=== PATIENT | female | born 1950 | race Caucasian/White ===

== ENCOUNTER → 2022-11-11 | Outpatient (CLI) | payer MEDICARE ==
[2022-11-11 15:36] LABS: Basophils # (A) 0.03 X 10*3/uL (0.00-0.10); Basophils % (A) 0.5 %; Eosinophils # (A) 0.08 X 10*3/uL (0.04-0.35); Eosinophils % (A) 1.4 %; HCT 43.2 % (37.2-46.3); HGB 13.8 g/dL (12.0-15.0); Immature Grans, Automated 0.2 %; Lymphocytes # (A) 2.44 X 10*3/uL (0.90-5.00); Lymphocytes % (A) 43.3 %; MCH 31.5 pg (27.0-32.0); MCHC 31.9 g/dL (32.0-37.0); MCV 98.6 fL (80.0-97.0); Mean Platelet Volume 10.8 fL (9.5-12.2); Monocytes # (A) 0.47 X 10*3/uL (0.20-1.00); Monocytes % (A) 8.3 %; NRBC Per 100 WBC 0 /100 WBCS (0.0-0.0); Neutrophils # (A) 2.61 X 10*3/uL (1.80-7.70); Neutrophils % (A) 46.3 %; Platelet Count 307 X 10*3/uL (140-440); RBC 4.38 X 10*6/uL (4.10-5.20); RDW 13.9 % (11.5-14.5); T4, Free (Free Thyroxine) 0.98 ng/dL (0.800-1.800); WBC 5.64 X 10*3/uL (4.50-10.00)
== END | disposition home or self-care (01) ==
LOC: LABWHC1 08:37
PROVIDERS: ATTEND Dermatology
DX: L65.9 Nonscarring hair loss, unspecified (principal); L57.0 Actinic keratosis; L81.4 Other melanin hyperpigmentation; L82.1 Other seborrheic keratosis; D18.01 Hemangioma of skin and subcutaneous tissue
CPT/HCPCS: 36415; 84439; 84443; 85025

== ENCOUNTER → 2022-11-29 | Outpatient (CLI) | payer MEDICARE ==
--- NOTE | 2022-12-06 07:30 | MM ---
Reason for Exam: Screening (asymptomatic). Last mammogram was performed 1 year(s) and 1 month(s) ago. Patient History: Menarche at age 13. First Full-Term at age 17. Postmenopausal. Risk Values: Felicity 5 year model risk: 1.2%. NCI Lifetime model risk: 2.9%. Prior Study Comparison: 06/30/2017 Bilateral Screening Mammogram, [facility]. 11/13/2021 Bilateral Screening Mammogram, [facility]. Tissue Density: There are scattered fibroglandular densities. Findings: Analyzed By CAD. A few tiny benign-appearing round calcifications in the bilateral breasts are present. There are benign appearing small round circumscribed masses towards the right axilla favoring lymph nodes redemonstrated. There is no suspicious group of microcalcifications or new suspicious mass in either breast. Overall Assessment: Benign, BI-RAD 2 Management: Screening Mammogram of both breasts in 1 year. . Patient should continue monthly self-breast exams. A clinical breast exam by your physician is recommended on an annual basis. This exam should not preclude additional follow-up of suspicious palpable abnormalities. Note on Felicity scores and lifetime risk: 1. A Felicity score greater than 3% is considered moderate risk. If this is the case, consider specialist referral to assess eligibility for a risk reducing agent. 2. If overall lifetime risk for the development of breast cancer is 20% or higher, the patient may qualify for future screening with alternating mammogram and breast MRI. Electronically signed and approved by: Rogelio Dobbs M.D.
== END | disposition home or self-care (01) ==
LOC: RADMAMWWP 09:41
PROVIDERS: ATTEND Family Medicine
DX: Z12.31 Encounter for screening mammogram for malignant neoplasm of breast (principal); Z78.0 Asymptomatic menopausal state
CPT/HCPCS: 77063; 77067

== ENCOUNTER → 2023-03-19 | Outpatient (CLI) | payer MEDICARE | END | disposition home or self-care (01) | LOC: LABPAT 11:39 | PROVIDERS: ATTEND Orthopaedic Surgery | DX: Z01.812 Encounter for preprocedural laboratory examination (principal); M17.12 Unilateral primary osteoarthritis, left knee; Z22.322 Carrier or suspected carrier of Methicillin resistant Staphylococcus aureus | CPT/HCPCS: 87070 ==

== ENCOUNTER 2023-04-07 08:20 | Day surgery (SDC) | payer MEDICARE ==
--- NOTE | 2023-04-06 12:43 | HP ---
HISTORY AND PHYSICAL DATE OF SURGERY: 04/07/2023 HISTORY OF PRESENT ILLNESS: Valentine Cee is a 72-year-old patient seen with symptomatic left knee osteoarthritis. We discussed options for treatment. The patient elected to proceed with left total knee arthroplasty. Consent was obtained. Medical clearance was provided by Dr. Edy Purcell. PAST MEDICAL HISTORY: Asthma, gastroesophageal reflux disease. SURGICAL HISTORY: Knee arthroscopy, appendectomy, tonsillectomy. DAILY MEDICATIONS: 1. Motrin. 2. Multivitamin. 3. Omeprazole. ALLERGIES: None. SOCIAL HISTORY: She denies tobacco use. PHYSICAL EVALUATION OF LEFT KNEE: Range of motion is 0 to 100 degrees, mild effusion, tenderness along lateral joint line. Crepitus along left patellofemoral compartment with range of motion. Pain with patellofemoral compression. Ligaments are stable. Hip rotation without pain. Distal neurovascular exam is intact. IMAGING: Radiographs of the left knee reveal severe osteoarthritic changes. IMPRESSION: 1. Left knee osteoarthritis. 2. Gastroesophageal reflux disease. 3. Asthma. PLAN: Left total knee arthroplasty. MMODL / IJN: [id number] /
[~2023-04-07 08:20] MED LIST: ACETAMINOPHEN TAB 500 MG TAB PO PRN; HYDROmorphone 0.5 MG/0.5 ML SYRINGE IVP PRN; LIDOCAINE 1% (10MG/ML) FOR IV START INTRADERMA PRN; MELOXICAM 7.5 MG TAB PO PRN; ONDANSETRON 4 MG/2 ML VIAL IVP ONE; TRANEXAMIC 1,000 MG/100ML-NACL 1,000 MG in SALINE 1 100ML.BAG IVPB PRN
[2023-04-07] MEDS: LACTATED RINGERS 1,000 ML IV SCH ×2 (08:55→14:13)
[2023-04-07] MEDS ORDERED: MIDAZOLAM 2 MG/2 ML VIAL IVP ONE (09:38)
[2023-04-07] MEDS ORDERED: ONDANSETRON 4 MG/2 ML VIAL IVP PRN (11:39)
[2023-04-07] MEDS ORDERED: HYDROmorphone 0.5 MG/0.5 ML SYRINGE IVP PRN ×2 (11:39)
[2023-04-07] MEDS ORDERED: NALOXONE 0.4 MG/ML 1 ML VIAL IV PRN (11:39)
[2023-04-07] MEDS ORDERED: HYDROcodone/APAP 5-325MG 1 EACH TAB PO PRN (11:39)
--- NOTE | 2023-04-07 11:39 | P.OP ---
Date of Procedure: 04/07/23 Preoperative Diagnosis: Left knee osteoarthritis Postoperative Diagnosis: Left knee osteoarthritis Procedure(s) Performed: Left total knee arthroplasty Implants: 1. Depuy attune size 6 narrow left cruciate retaining cemented femur 2. Depuy attune size 6 fixed bearing cemented tibial baseplate 3. Depuy attune size 6 fixed bearing cruciate retaining 12 mm polyethylene tibial insert 4. Depuy attune 38 mm all polyethylene cemented patella Anesthesia: regional (Adductor canal catheter, Ipack block), spinal Surgeon: Singh Mak Pump And Blower Operator #1: Arturo Em Estimated Blood Loss (ml): 40 Pathology: none sent Condition: stable Disposition: PACU Indications for Procedure: 72-year-old patient seen with symptomatic left knee osteoarthritis. After having treatment options discussed, she elected to proceed with total knee arthroplasty. Operative Findings: see description of procedure Description of Procedure: Patient was taken to the operative suite after having an adductor canal catheter placed by the department of anesthesia. Patient underwent a spinal anesthetic by the department of anesthesia. Patient was given preoperative IV intake antibiotics and TXA. A well-padded tourniquet was placed about the left lower extremity. The lower extremity was then prepped and draped in the normal sterile orthopedic fashion. The extremity was elevated, a tourniquet was insufflated to 300. A standard anterior incision was made sharply through skin. Dissection was taken down through the subcutaneous soft tissues down to the extensor mechanism. A medial arthrotomy was performed, patella was everted and knee was flexed. There was advanced osteoarthritis noted. I introduced my distal intramedullary femoral drill. I then introduced the distal femoral cut ting jig. Marco Antonio HAIRSTON secured the cutting jig with 2 pins. I held retractors in position while Marco Antonio HAIRSTON performed the distal femoral resection through the guide area we now removed her distal femoral cutting guide. We now placed our 4-in-1 femoral cutting block and positioned and it was secured with 2 pins by Marco Antonio HAIRSTON while I held the block in position. The distal femoral finishing was now completed. A proximal tibial cutting guide was positioned. I held the guide in the appropriate position with both hands well Marco Antonio HAIRSTON inserted stabilizing pins into the guide. Proximal tibial cut was made. We now placed a trial femoral component into position, along with an appropriate size tibial tray and insert. We now took the knee through range of motion and had full extension good flexion and good overall soft tissue balance noted. The patella was everted and stabilized with 2 towel clips held by Marco Antonio HAIRSTON while I performed a flush with patellar quad tendon utilizing a fresh sawblade. We templated the patella, appropriate drill holes were made. An appropriate trial patella was positioned, knee was taken through full range of motion with the patella tracking laterally. I now performed a lateral release. I now took the knee through range of motion again noted the patella tracked nicely. The trial patella was removed. Drill holes were made through the femoral component. All trial components were removed after marking off the appropriate rotation of the tibia. Retractors were now positioned along the proximal tibia. An appropriate keel punch was made with the appropriate size tibial guide by myself while Marco Antonio HAIRSTON assisted by holding retractors. At this point appropriate size implants were chosen and opened. The joint was irrigated copiously with pulse lavage mechanical irrigation. The wound was irrigated with pulse lavage mechanical irrigation. We mixed antibiotic methylmethacrylate. We placed the knee into flexion. We placed multiple retractors assisted by Marco Antonio HAIRSTON to expose the proximal tibia. Once the methyl methacrylate was ready, the tibial component was cemented into place removing any excess methylmethacrylate form by both myself and Marco Antonio HAIRSTON. The femoral component was cemented into place removing the removing any excess methylmethacrylate performed by both myself and Marco Antonio HAIRSTON. We then ins erted the appropriate size polyethylene tibial insert. We made sure that it was locked into position. We took the knee into full extension, and then back in a flexion making sure we had removed any excess methylmethacrylate. The patellar component was then cemented down and secured with clamp. Excess methylmethacrylate removed. We kept the knee in full extension, patellar clamp in position until methylmethacrylate had hardened. Once it had hardened the patellar clamp was removed. The knee was taken through full range of motion. The patella tracked nicely. There was good soft tissue balancing. The tourniquet was now released. Additional hemostasis was achieved via electrocautery. A second gram of TXA was given. The wound again was irrigated with pulse lavage mechanical irrigation. The extensor mechanism was repaired with Ethibond suture. We checked the repair with range of motion and it was stable. The subcutaneous soft tissues were repaired with Vicryl in layers. The skin was approximated with pernio/Dermabond. Sterile dressings were applied followed by loose web roll and Portillo bandage. The patient was transferred to a bed, and taken to recovery in stable and satisfactory condition. Marco Antonio HAIRSTON assisted with this complex procedure.
[2023-04-07] MEDS ORDERED: SODIUM CHLORIDE 0.9% 1,000 ML IV SCH (11:45)
[2023-04-07] MEDS ORDERED: ROPIVACAINE 1,100 MG, SODIUM CHLORIDE 0.9% 500 ML 330 ML, EMPTY PAIN BALL 1 EACH MISCELLANE PRN ×2 (12:08)
--- NOTE | 2023-04-07 12:32 | XR ---
EXAMINATION TYPE: XR knee limited LT DATE OF EXAM: 04/07/2023 12:25 PM CLINICAL INDICATION:Female, 72 years old with history of Evaluation for Postop abnormality and alignm ent; [facility] COMPARISON: None. TECHNIQUE: The Left knee(s) was examined in Frontal, lateral and oblique projections. FINDINGS: Status post total knee arthroplasty changes with hardware in appropriate alignment and in tact. No evidence of fracture. Subcutaneous lucencies and lucencies within the joint consistent with surgical changes. IMPRESSION: Status post total knee arthroplasty changes with hardware intact and appropriate alignment. No fractu res identified.
[2023-04-07] MEDS ORDERED: HYDROmorphone 0.5 MG/0.5 ML SYRINGE IVP ONE (15:44)
[2023-04-07] MEDS ORDERED: ONDANSETRON 4 MG/2 ML VIAL IVP ONE (15:45)
[2023-04-07] MEDS: HYDROmorphone 0.5 MG/0.5 ML SYRINGE IVP PRN ×2 (17:49→23:58)
[2023-04-07] MEDS: HYDROcodone/APAP 7.5-325MG 1 EACH TAB PO PRN (20:06)
--- NOTE | 2023-04-07 20:58 | P.ANPRN ---
Procedure Note - Anesthesia - Nerve Block Performed Left Adductor Canal Infusion Time Out Performed: Yes Date of Procedure: 04/07/23 Procedure Start Time: :37 Procedure Stop Time: 09:48 Location of Patient: PreOp Indication: Acute Post-Operative Pain, Requested by Surgeon Sedation Type: Sedate with meaningful contact maintained Preparation: Sterile Prep Position: Supine Catheter: Indwelling Needle Types: Pajunk Needle Gauge: 21 Ultrasound used to visualize needle placement: Yes Ultrasound used to observe medication spread: Yes Blood Aspirated: No Pain Paresthesia on Injection Noted: No Resistance on Injection: Normal Image Stored and Saved: Yes Events: Uneventful and Well Tolerated (ropi .5% 20cc plus dexamethasone 4mg)
--- NOTE | 2023-04-07 20:59 | P.ANPRN ---
Procedure Note - Anesthesia - Nerve Block Performed Left iPack Single Time Out Performed: Yes Date of Procedure: 04/07/23 Procedure Start Time: :49 Procedure Stop Time: :52 Location of Patient: PreOp Indication: Acute Post-Operative Pain, Requested by Surgeon Sedation Type: Sedate with meaningful contact maintained Preparation: Sterile Prep Position: Supine Needle Types: Pajunk Needle Gauge: 21 Ultrasound used to visualize needle placement: Yes Ultrasound used to observe medication spread: Yes Blood Aspirated: No Pain Paresthesia on Injection Noted: No Resistance on Injection: Normal Image Stored and Saved: Yes Events: Uneventful and Well Tolerated (ropi .5% 25 cc plus dexamethasone 4mg)
[2023-04-07] MEDS ORDERED: SENNOSIDES-DOCUSATE SODIUM 1 EACH TAB PO SCH (21:00)
[2023-04-08] MEDS ORDERED: ENOXAPARIN 30 MG/0.3 ML SYRINGE SQ SCH (06:00)
[2023-04-08] MEDS: HYDROcodone/APAP 7.5-325MG 1 EACH TAB PO PRN (07:21)
--- NOTE | 2023-04-08 08:13 | P.PN ---
Progress Note - Text 04/08/23 741a 72-year-old female status post total knee replacement by Dr. Mak. Patient has an On-Q pump for postop pain control patient seen and evaluated, patient has a VAS of 4 with the pain predominantly located behind the knee On-Q pump is running at 8 mL an hour and a dressing was clean dry and intact plan to continue On-Q pump infusion
[2023-04-08] MEDS ORDERED: ALBUTEROL HFA INHALER INHALATION PRN (08:51)
[2023-04-08] MEDS ORDERED: IPRATROPIUM-ALBUTEROL 3 ML NEB INHALATION PRN (08:51)
[2023-04-08] MEDS ORDERED: PANTOPRAZOLE 40 MG TABLET PO SCH (09:00)
[2023-04-08] MEDS ORDERED: lisinopriL 5 MG TAB PO SCH (09:00)
[2023-04-08] MEDS ORDERED: DULoxetine HCL 20 MG CAPSULE.DR PO SCH (09:00)
[2023-04-08 09:09] VITALS: RESP 18
[2023-04-08] MEDS ORDERED: HYDROcodone/APAP 7.5-325MG 1 EACH TAB PO PRN (10:21)
[2023-04-08] MEDS ORDERED: hydrOXYzine pamoate 25 MG CAP PO PRN (10:22)
--- NOTE | 2023-04-08 10:37 | P.CONS ---
History of Present Illness - Reason for Consult Consult date: 04/08/23 Medical management , Hypertension Requesting physician: Singh Mak - Chief Complaint Left knee osteoarthritis status post total arthroplasty - History of Present Illness This is a pleasant 72-year-old female with past medical history significant for asthma, gastroesophageal reflux disease, hypertension, osteoarthritis and multiple other medical issues status post left total knee arthroplasty secondary to left knee osteoarthritis. Tolerated procedure well. Reports has been up to the bathroom a few times, tolerated exertion well. Pain improved this morning. Compliant with incentive spirometer. Recently outpatient, patient's MADELINE inhibitor stopped as patient developed facial blotchiness, edema, lightheadedness. Denies chest pain, palpitations or shortness of breath. Positive diet intake, denies nausea vomiting or diarrhea. Review of Systems ROS Statement: Those systems with pertinent positive or pertinent negative responses have been documented in the HPI. ROS Other: All systems not noted in ROS Statement are negative. Past Medical History Past Medical History: Asthma, GERD/Reflux, Hypertension, Osteoarthritis (OA) Additional Past Medical History / Comment(s): ulcers, History of Any Multi-Drug Resistant Organisms: None Reported Past Surgical History: Adenoidectomy, Appendectomy, Cholecystectomy, Joint Replacement, Tonsillectomy Additional Past Surgical History / Comment(s): rt knee fx arm repair Past Anesthesia/Blood Transfusion Reactions: No Reported Reaction Past Psychological History: No Psychological Hx Reported Smoking Status: Never smoker Past Alcohol Use History: None Reported Past Drug Use History: None Reported Medications and Allergies Home Medications Medication Instructions Recorded Confirmed Type Albuterol Sulfate [Ventolin HFA] 2 puff INHALATION Q6H PRN 04/02/23 04/02/23 History DULoxetine HCL 20 mg PO DAILY 04/02/23 04/02/23 History Ipratropium/Albuter 20-100Mcg 3 ml INHALATION TID PRN 04/02/23 04/02/23 History [Combivent Respimat 20-100Mcg Inhaler] Montelukast [Singulair] 10 mg PO HS 04/02/23 04/02/23 History Omeprazole 20 mg PO DAILY 04/02/23 04/02/23 History Vitamin D(Unk) 1 dose PO WEEKLY 04/02/23 04/02/23 History lisinopriL [Zestril] 5 mg PO DAILY 04/02/23 04/07/23 History Allergies Allergy/AdvReac Type Severity Reaction Status Date / Time No Known Allergies Allergy Verified 04/07/23 08:32 Physical Exam Vitals: Vital Signs Temp Pulse Pulse Resp BP Pulse Ox 04/08/23 09:07 98 F 76 76 18 117/69 90 L 04/08/23 02:07 97.6 F 89 16 137/90 94 L 04/07/23 20:00 97.4 F L 77 16 108/62 93 L 04/07/23 17:22 97.2 F L 57 L 18 139/71 100 04/07/23 16:30 71 17 137/87 94 L 04/07/23 16:00 75 16 130/69 95 04/07/23 15:30 69 16 155/85 97 04/07/23 15:00 65 16 155/80 97 04/07/23 14:30 58 L 16 159/74 97 04/07/23 14:00 55 L 16 154/73 97 04/07/23 13:45 59 L 16 171/84 98 04/07/23 13:30 52 L 16 172/88 92 L 04/07/23 13:15 52 L 16 170/62 96 04/07/23 12:55 52 L 16 160/78 95 04/07/23 12:40 60 16 148/96 99 04/07/23 12:25 52 L 16 149/77 98 04/07/23 12:10 56 L 16 136/81 98 04/07/23 11:55 97 F L 69 12 107/60 97 Intake and Output 04/07/23 04/08/23 04/08/23 22:59 06:59 14:59 Output Total 600 Balance -600 Output: Urine 600 Other: # Voids 0 2 # Bowel Movements 0 Weight 85.1 kg PHYSICAL EXAM: VITAL SIGNS: As above GENERAL: Well-nourished, Sitting up in bed, no acute distress HEENT: Normocephalic, Conjunctivae normal. eyes normal. NECK: Supple, No JVD. No thyroid enlargement. No LNs CARDIOVASCULAR: S1, S2 regular. No murmur RESPIRATION: Nonlabored, equal air entry .Breath sounds diminished in the bases. No rhonchi or crackles. No bronchial breathing. ABDOMEN: Soft, nontender . No guarding. no masses palpable. No ascites, No hepatosplenomegaly.Bowel sounds heard. EXTREMITIES: Left knee dressing clean dry and intact, mild edema with ecchymosis. No clubbing, no calf tenderness, positive DP pulse. PSYCHIATRY: Alert and oriented X3, mood and affect normal. NERVOUS SYSTEM: Cranial N 2-12 grossly normal. No focal deficits. Strength and sensation grossly intact.. Skin: Warm and dry no rash Assessment and Plan Assessment: Left knee osteoarthritis, status post left total knee arthroplasty Obesity, BMI 31 Chronic asthma, stable Gastroesophageal reflux disease Hypertension, MADELINE inhibitor has been discontinued outpatient secondary to reaction as mentioned above. Plan: Continue on current medication regime ,monitoring and symptomatic treatment. Aggressive pulmonary toileting with incentive spirometer reinforced. PT/OT. Pain management/DVT prophylaxis as per primary. Discussed with patient continue off MADELINE inhibitor, off antihypertensives as blood pressure is well controlled currently and will address in clinic at follow-up visit. Follow-up with PCP in 1 week. Thank you for the consult. The impression and plan of care has been dictated as directed. : I performed a history and examination of this patient, discussed the same with the dictator. I agree with the dictator's note ,documented as a scribe. Any additional findings or plans will be noted.
--- NOTE | 2023-04-08 10:57 | P.PN ---
Subjective Progress Note Date: 04/08/23 Principal diagnosis: Status post left total knee arthroplasty Patient evaluated at bedside, she is resting comfortably. She was just over physical therapy, she did note some increase in pain with ambulation. She was able to stairs without difficulty. She denies any headaches, lightheadedness, chest pain or shortness of breath at this time. She has been urinating with no issues. Objective - Vital Signs Vital signs: Vital Signs Temp 98 F 04/08/23 09:07 Pulse 76 04/08/23 09:07 Resp 18 04/08/23 09:07 BP 117/69 04/08/23 09:07 Pulse Ox 90 L 04/08/23 09:07 FiO2 Intake & Output 04/07/23 04/08/23 04/08/23 18:59 06:59 18:59 Intake Total 1350 Output Total 640 Balance 710 Weight 85.1 kg Intake: IV 1350 Output: Urine 600 Estimated Blood Loss 40 Other: # Voids 0 2 # Bowel Movements 0 - Exam Left lower extremity: Incision is clean, dry, and intact. The foam dressing is in good condition. There is minimal soft tissue swelling and ecchymosis surrounding the medial and lateral aspects of the incision. Calf is soft, no tenderness with palpation. Plantar flexion, dorsiflexion, EHL, FHL are intact. Sensory exam to light touch throughout the extremity is intact, dorsal pedis pulses 2+. Assessment and Plan Assessment: Postoperative day #1 status post left total knee arthroplasty Plan: Pain control, will plan for discharge on [place] 7.5 mg/325 mg DVT prophylaxis, aspirin 81 mg twice a day for 30 days Wound care instructions were discussed, this concluded bandaging, icing and elevating and showering Medical recommendations appreciated Encourage incentive spirometer Home therapy/nursing after discharge Discharge planning: Patient stable for discharge home today Time with Patient: Less than 30
[2023-04-08 11:12] LABS: Basophils # (A) 0.02 X 10*3/uL (0.00-0.10); Basophils % (A) 0.2 %; Eosinophils # (A) 0 X 10*3/uL (0.04-0.35); Eosinophils % (A) 0 %; HCT 39.1 % (37.2-46.3); HGB 12.8 d/dL (12.0-15.0); Lymphocytes # (A) 1.76 X 10*3/uL (0.90-5.00); Lymphocytes % (A) 15.7 %; MCH 31.9 pg (27.0-32.0); MCHC 32.7 d/dL (32.0-37.0); MCV 97.5 FL (80.0-97.0); Mean Platelet Volume 11.2 FL (9.5-12.2); Monocytes # (A) 0.97 X 10*3/uL (0.20-1.00); Monocytes % (A) 8.6 %; NRBC Per 100 WBC 0 X 10*3/uL (0.00-0.01); Neutrophils # (A) 8.44 X 10*3/uL (1.80-7.70); Neutrophils % (A) 75.2 %; Platelet Count 251 X 10*3/uL (140-440); RBC 4.01 X 10*6/uL (4.10-5.20); RDW 12.3 % (11.5-14.5); WBC 11.22 X 10*3/uL (4.50-10.00)
[2023-04-08] MEDS: LACTATED RINGERS 1,000 ML IV SCH ×2 (11:17)
[2023-04-08 13:04] VITALS: BP 112/72; PULSE 111; TEMP 98.3
[2023-04-08] MEDS ORDERED: MONTELUKAST 10 MG TAB PO SCH (21:00)
--- NOTE | 2023-04-09 16:48 | P.DS ---
Providers Date of admission: 04/07/2023 Expected date of discharge: 04/08/23 Attending physician: Singh Mak Consults: 04/07/23 11:39 Consult Physician Routine Consulting Provider: Edy Purcell Consult Reason/Comments: Medical management Do you want consulting provider notified?: Yes Primary care physician: Edy Purcell MD Hospital Course: Date of admission: 04/07/2023 Date of discharge: 04/08/2023 Admission diagnosis: Status post left total knee arthroplasty Discharge diagnosis: Same Attending physician: Dr. Mak Surgical procedures: Left total knee arthroplasty Brief history: Patient is a 72-year-old female with a history of progressive primary left knee osteoarthritis. At this point patient has failed conservative treatment measures and has opted to proceed with a elective left total knee arthroplasty. Hospital course: Details of patient's surgery can be found in operative report. Patient tolerated the procedure well and was subsequently transported to orthopedic floor. Patient's orthopeidc and medical care was provided daily. Patient had daily laboratory tests performed for evaluation of overall blood counts. Patient had daily physical therapy to include strengthening range of motion as well as education with walker ambulation. Patient was treated with Lovenox for their postoperative DVT prophylaxis during their inpatient stay. Patient was noted to have a relatively uneventful postoperative course. Patient reported satisfactory pain control with oral pain medications by postoperative day 0. Patient showed satisfactory progress with physical therapy. Patient moved steadily through the program and had no difficulty meeting the goals by postoperative day 1. Given patient's otherwise satisfactory course and having met physical therapy goals, plan is to discharge patient home on postoperative day 1. Discharge condition/disposition: Patient will be discharged home in stable condition. Discharge medications: Instructions are given on resumption of patient's normal daily medications per primary care recommendation, in addition patient will be prescribed Gonzales 7.5 mg/325 mg, senna S, aspirin 81 mg. Discharge instructions: 1. Wound care and infection precautions, keep incision dry and covered while showering, no lotions, creams, moisturizers. No soaking, tubs, pools, hottubs. Do not scrub over the incision. 2. Weight-bear as tolerated with walker / cane until follow-up. 3. Ice and elevate when necessary. Do not exceed 20 minutes per hour with ice pack. 4. Utilize compression sleeve until seen at first follow up appointment. 5. Visiting nursing care. 6. Home physical therapy including home CPM. 7. Pain meds and anticoagulants per prescription. 8. Pain medication has potential to cause constipation. Increase oral fluid and fiber intake. Contact primary care provider if you have not had a bowel movement within 48 hours after discharge 9. No anti-inflammatory medication until discussed at first post operative visit, this including Motrin, Aleve, Mobic, Diclofenac. 10. Follow up in office at 2 weeks postop with Marco Antonio Em PA-C/Dannie Ballesteros 11. Follow up with your primary care doctor 7-10 days after discharge. 12. Contact [facility] with any questions, . Procedures: Left total knee arthroplasty Patient Condition at Discharge: Good Plan - Discharge Summary Discharge Rx Participant: No New Discharge Prescriptions: New Sennosides/Docusate Sodium [Senna-S 8.6-50 mg Tablet] 2 each PO DAILY PRN #30 tablet PRN Reason: Constipation Aspirin [Adult Low Dose Aspirin EC] 81 mg PO BID #60 tab HYDROcodone/APAP 7.5-325MG [Gonzales 7.5] 1 each PO Q4HR PRN #42 tab PRN Reason: Pain No Action DULoxetine HCL 20 mg PO DAILY Montelukast [Singulair] 10 mg PO HS lisinopriL [Zestril] 5 mg PO DAILY Vitamin D(Unk) 1 dose PO WEEKLY Omeprazole 20 mg PO DAILY Ipratropium/Albuter 20-100Mcg [Combivent Respimat 20-100Mcg Inhaler] 3 ml INHALATION TID PRN PRN Reason: Shortness Of Breath Albuterol Sulfate [Ventolin HFA] 2 puff INHALATION Q6H PRN PRN Reason: Shortness Of Breath Discharge Medication List Albuterol Sulfate [Ventolin HFA] 2 puff INHALATION Q6H PRN 04/02/23 [History] DULoxetine HCL 20 mg PO DAILY 04/02/23 [History] Ipratropium/Albuter 20-100Mcg [Combivent Respimat 20-100Mcg Inhaler] 3 ml INHALATION TID PRN 04/02/23 [History] Montelukast [Singulair] 10 mg PO HS 04/02/23 [History] Omeprazole 20 mg PO DAILY 04/02/23 [History] Vitamin D(Unk) 1 dose PO WEEKLY 04/02/23 [History] lisinopriL [Zestril] 5 mg PO DAILY 04/02/23 [History] Aspirin [Adult Low Dose Aspirin EC] 81 mg PO BID #60 tab 04/08/23 [Rx] HYDROcodone/APAP 7.5-325MG [Gonzales 7.5] 1 each PO Q4HR PRN #42 tab 04/08/23 [Rx] Sennosides/Docusate Sodium [Senna-S 8.6-50 mg Tablet] 2 each PO DAILY PRN #30 tablet 04/08/23 [Rx] Follow up Appointment(s)/Referral(s): Edy Purcell MD [Primary Care Provider] - 1 Week (office not answering Please call to schedule appointment ) [facility], [NON-STAFF] - As Needed Arturo Em PAC [PHYSICIAN HEALTH UNIT SUPERVISOR] - 04/23/23 1:50 pm Patient Instructions/Handouts: *Surgery [facility] - On-Q Pain Pump Discharge Instructions, Knee Replacement (DC) Activity/Diet/Wound Care/Special Instructions: Orthopedic Discharge Instructions: 1. Wound care and infection precautions, keep incision dry and covered while showering, no lotions, creams, moisturizers. No soaking, pools, hot tubs. Do not scrub over incision. 2. Weight-bear as tolerated with walker / cane until follow-up. 3. Ice and elevate when necessary. Do not exceed 20 minutes per hour with ice pack. 4. Utilize compression sleeve until seen at first follow up appointment. 5. Pain meds and anticoagulants per prescription. 6. Pain medication has potential to cause constipation. Increase oral fluid and fiber intake. Contact primary care provider if you have not had a bowel movement within 48 hours after discharge. 7. No anti-inflammatory medication until discussed at first post operative visit, this including Motrin, Aleve, Mobic, Diclofenac. 8. Follow up in office at 2 weeks postop with Marco Antonio Em PA-C / Dannie Lee PA-C 9. Follow up with your primary care doctor 7-10 days after discharge. 10. Contact [facility] with any questions, . Keep incision clean, dry, intact. While showering, cover silver foam dressing with Saran wrap. Silver foam dressing may be removed on 04/14/2023. It is okay to shower directly over incision once dressing is removed. Discharge Disposition: HOME WITH HOME HEALTH SERVICES
== END 2023-04-08 13:07 | disposition home health service (06) ==
LOC: OR 08:20 → 4SSUR 11:36 → OR 04-08 13:07
PROVIDERS: ATTEND Orthopaedic Surgery
DX: M17.12 Unilateral primary osteoarthritis, left knee (principal); G89.18 Other acute postprocedural pain; J45.909 Unspecified asthma, uncomplicated; K21.9 Gastro-esophageal reflux disease without esophagitis; Z90.89 Acquired absence of other organs; Z79.899 Other long term (current) drug therapy
CPT/HCPCS: 97161; 64999; 64448; 85025; 73560; 27447; C1776; C1713 ×2; C1751; J2250; J0690 ×2; J2405; J1650; J2795; J1170

== ENCOUNTER → 2023-12-08 | Outpatient (CLI) | payer MEDICARE ==
--- NOTE | 2023-12-16 09:18 | MM ---
Reason for Exam: Screening (asymptomatic). Last screening mammogram was performed 12 month(s) ago. Patient History: Menarche at age 13. First Full-Term at age 17. Postmenopausal. Risk Values: Felicity 5 year model risk: 1.2%. NCI Lifetime model risk: 2.7%. Prior Study Comparison: 06/30/2017 Bilateral Screening Mammogram, [facility]. 11/13/2021 Bilateral Screening Mammogram, [facility]. 11/29/2022 Bilateral MG 3D screening mammo w/cad, [facility]. Tissue Density: There are scattered areas of fibroglandular density. Findings: Analyzed By CAD. There is no suspicious group of microcalcifications or new suspicious mass in either breast. Benign-appearing lymph nodes in the right axilla. Benign calcifications. Overall Assessment: Benign, BI-RAD 2 Management: Screening Mammogram of both breasts in 1 year. . Patient should continue monthly self-breast exams. A clinical breast exam by your physician is recommended on an annual basis. This exam should not preclude additional follow-up of suspicious palpable abnormalities. Note on Felicity scores and lifetime risk: 1. A Felicity score greater than 3% is considered moderate risk. If this is the case, consider specialist referral to assess eligibility for a risk reducing agent. 2. If overall lifetime risk for the development of breast cancer is 20% or higher, the patient may qualify for future screening with alternating mammogram and breast MRI. Electronically signed and approved by: Andrea Roberto M.D. Radiologis
== END | disposition home or self-care (01) ==
LOC: RADMAMWWP 11:13
PROVIDERS: ATTEND Family Medicine
DX: Z12.31 Encounter for screening mammogram for malignant neoplasm of breast (principal); Z78.0 Asymptomatic menopausal state
CPT/HCPCS: 77063; 77067

== ENCOUNTER → 2024-01-05 | Outpatient (CLI) | payer MEDICARE | END | disposition home or self-care (01) | LOC: LABPAT 10:21 | PROVIDERS: ATTEND Orthopaedic Surgery | DX: Z01.818 Encounter for other preprocedural examination (principal); Z22.322 Carrier or suspected carrier of Methicillin resistant Staphylococcus aureus; M16.11 Unilateral primary osteoarthritis, right hip | CPT/HCPCS: 86850; 86900; 86901; 87070 ==

== ENCOUNTER → 2024-01-09 | Outpatient (CLI) | payer MEDICARE ==
[2024-01-09 15:31] LABS: BUN/Creat Ratio 26.89 Ratio (12.00-20.00); Blood Urea Nitrogen 24.2 mg/dL (9.0-27.0); Calcium 10.1 mg/dL (8.7-10.3); Carbon Dioxide 27.2 mmol/L (21.6-31.8); Chloride 104 mmol/L (96-109); Glucose 102 mg/dL (70-110); Potassium 4.4 mmol/L (3.5-5.5); Sodium 142 mmol/L (135-145)
[2024-01-09 15:32] LABS: Basophils # (A) 0.03 X 10*3/uL (0.00-0.10); Basophils % (A) 0.5 %; Eosinophils % (A) 1.7 %; HCT 41.8 % (37.2-46.3); HGB 13.7 g/dL (12.0-15.0); Lymphocytes # (A) 2.14 X 10*3/uL (0.90-5.00); Lymphocytes % (A) 36.4 %; MCHC 32.8 g/dL (32.0-37.0); MCV 100.7 FL (80.0-97.0); Mean Platelet Volume 10.8 FL (9.5-12.2); Monocytes # (A) 0.48 X 10*3/uL (0.20-1.00); Monocytes % (A) 8.2 %; NRBC Per 100 WBC 0 X 10*3/uL (0.00-0.01); Neutrophils # (A) 3.11 X 10*3/uL (1.80-7.70); Neutrophils % (A) 52.9 %; Platelet Count 302 X 10*3/uL (140-440); RBC 4.15 X 10*6/uL (4.10-5.20); RDW 12.7 % (11.5-14.5); WBC 5.88 X 10*3/uL (4.50-10.00)
[2024-01-09 15:39] LABS: INR 1.04 sec (0.93-1.11); Prothrombin Time 11.2 sec (9.9-11.9)
== END | disposition home or self-care (01) ==
LOC: LABPAT 09:13
PROVIDERS: ATTEND Orthopaedic Surgery
DX: Z01.812 Encounter for preprocedural laboratory examination (principal); M16.11 Unilateral primary osteoarthritis, right hip
CPT/HCPCS: 36415; 80048; 85025; 85610

== ENCOUNTER 2024-01-12 10:51 | Day surgery (SDC) | payer MEDICARE ==
[2024-01-06 16:12] VITALS: BMI 32.8
--- NOTE | 2024-01-12 08:31 | HP ---
HISTORY AND PHYSICAL DATE OF SURGERY: 01/12/2024. Valentine Cee is a 73-year-old patient, seen with symptomatic right hip osteoarthritis. We discussed options regarding treatment. She elected to proceed with direct anterior right total hip arthroplasty. Consent regarding the procedure was obtained. Medical clearance was provided by Elly Leonard at Dr. Purcell's office. PAST MEDICAL HISTORY: Gastroesophageal reflux disease, hypertension. PAST SURGICAL HISTORY: Total knee arthroplasty, appendectomy, tonsillectomy. DAILY MEDICATIONS: Motrin, multivitamin, omeprazole. ALLERGIES: None. SOCIAL HISTORY: She denies tobacco use. PHYSICAL EVALUATION OF THE RIGHT HIP: She has diffuse tenderness about the hip girdle. Limited range of motion. Severe pain. Positive impingement sign. Straight-leg raise negative. Her distal neurovascular exam is intact. IMAGING STUDIES: Radiographs of the right hip reveals severe osteoarthritic changes. IMPRESSION: 1. Right hip severe osteoarthritis. 2. Hypertension. 3. Gastroesophageal reflux disease. PLAN: Direct anterior right total hip arthroplasty. MMODL / IJN: [id number] /
[~2024-01-12 10:51] MED LIST changes: -ACETAMINOPHEN TAB 500 MG TAB PO PRN; -HYDROmorphone 0.5 MG/0.5 ML SYRINGE IVP PRN; -MELOXICAM 7.5 MG TAB PO PRN; -ONDANSETRON 4 MG/2 ML VIAL IVP ONE; +ONDANSETRON 4 MG/2 ML VIAL IVP PRN
[2024-01-12] MEDS: IV FLUID CONTINUATION 1,000 ML IV ONE ×2 (11:12→14:15)
[2024-01-12] MEDS: LACTATED RINGERS 1,000 ML IV SCH (11:31)
[2024-01-12] MEDS: ACETAMINOPHEN TAB 500 MG TAB PO PRN (11:31)
[2024-01-12] MEDS: ONDANSETRON 4 MG/2 ML VIAL IVP ONE (11:32)
[2024-01-12] MEDS: MELOXICAM 7.5 MG TAB PO PRN (11:32)
[2024-01-12] MEDS: DEXAMETHASONE SOD PHOSPHATE 4 MG/ML 1 ML VIAL IV ONE (11:32)
[2024-01-12] MEDS: MIDAZOLAM 2 MG/2 ML VIAL IVP ONE (12:41)
[2024-01-12] MEDS ORDERED: PROPOFOL 10 MG/ML 20 ML VIAL IV ONE (12:47)
[2024-01-12] MEDS ORDERED: ROPIVACAINE 5 MG/ML 30 ML VIAL ONE (12:47)
[2024-01-12] MEDS ORDERED: fentaNYL (PF) 50 MCG/ML 2 ML AMP ONE (12:47)
[2024-01-12] MEDS ORDERED: DEXAMETHASONE SOD PHOSPHATE 4 MG/ML 1 ML VIAL ONE (12:47)
[2024-01-12] MEDS ORDERED: MIDAZOLAM 2 MG/2 ML VIAL ONE (12:47)
[2024-01-12] MEDS ORDERED: TRANEXAMIC 1,000 MG/100ML-NACL PREMIX BAG ONE (12:47)
--- NOTE | 2024-01-12 13:39 | P.ANPRN ---
Procedure Note - Anesthesia - Nerve Block Performed Right Nitesh Single Time Out Performed: Yes Date of Procedure: 01/12/24 Procedure Start Time: 12:41 Procedure Stop Time: 12:46 Location of Patient: PreOp Indication: Acute Post-Operative Pain, Requested by Surgeon Sedation Type: Sedate with meaningful contact maintained Preparation: Sterile Prep Position: Supine Needle Types: Pajunk Needle Gauge: 21 Ultrasound used to visualize needle placement: Yes Ultrasound used to observe medication spread: Yes Blood Aspirated: No Pain Paresthesia on Injection Noted: No Resistance on Injection: Normal Image Stored and Saved: Yes Events: Uneventful and Well Tolerated (Ropivacaine 0.5% 20 cc plus dexamethasone 4 mg)
[2024-01-12] MEDS ORDERED: NALOXONE 0.4 MG/ML 1 ML VIAL IV PRN (14:22)
[2024-01-12] MEDS ORDERED: HYDROmorphone 0.5 MG/0.5 ML SYRINGE IVP PRN ×3 (14:22)
--- NOTE | 2024-01-12 14:22 | P.OP ---
Date of Procedure: 01/12/24 Preoperative Diagnosis: Right hip osteoarthritis Postoperative Diagnosis: Right hip osteoarthritis Procedure(s) Performed: Direct anterior right total hip arthroplasty Implants: 1. DePuy [place] 135 degree standard collared KA size 13 press-fit femoral stem 2. DePuy [place] 60 mm press-fit acetabular shell 3. DePuy [place] neutral polyethylene acetabular liner 36 mm ID 60 mm OD 4. Biolox delta ceramic femoral head +5 36 mm Anesthesia: regional (Erector spinae block), spinal Surgeon: Singh Mak Wind Field Service Manager #1: Arturo Em Estimated Blood Loss (ml): 45 Pathology: none sent Condition: stable Disposition: PACU Indications for Procedure: 73-year-old patient seen with symptomatic right hip osteoarthritis. After having treatment options discussed, she elected to proceed with direct anterior right total hip arthroplasty. Operative Findings: See description of procedure Description of Procedure: The patient was taken to the operative suite. Patient underwent a spinal anesthetic by the department of anesthesia. Patient was then transferred to the [place] table. Patient was given preoperative IV antibiotics and TXA. Both lower extremities were placed in standard leg spars. The hip was then prepped and draped in the normal sterile orthopedic fashion. A standard anterior incision was made beginning 3 cm lateral and 1 cm distal to the ASIS extending 10 cm. Dissection was then carried down through the subcutaneous soft tissues down to the fascia overlying the tensor fascia lester. An incision was now made through the fascia. Careful dissection was taken down exposing the tensor fascia lester muscle. A Cobra retractor was now placed along the medial femoral neck and a second one along the lateral femoral neck. The venous circumflex vessels were now identified, cauterized and clipped. We identified the anterior hip capsule. An incision was made through the hip capsule along the lateral border. I performed a partial anterior capsulectomy. Retractors were now placed around the femoral neck itself. A femoral neck cut was now made with a sagittal saw. It was completed with an osteotome at the lateral neck area. The femoral head was now removed without difficulty. The extremity was now rotated to 60 of external rotation. It was locked in position. Residual labrum was now debrided out. Serial reaming was performed of the acetabulum while Marco Antonio HAIRSTON assisted holding an anterior retractor for exposure. Once we reached the appropriate size and a trial was position and fit nicely. The appropriate size was now chosen opened and made available. It was introduced into the acetabulum without difficulty. The C-arm/fluoroscopy was now brought into the operative field. We made sure we had a true AP pelvic view. We now under direct C- arm/fluoroscopy introduced into the acetabular component with appropriate version and inclination. I held the cup in appropriate position well Marco Antonio HAIRSTON used a mallet to seat the acetabular component. I noted the component now to be well seated and stable. Acetabular cup introduce her was removed. The C-arm was pulled back. An appropriate liner was introduced and clicked into position. It was felt to be stable. At this point retractors were removed. The extremity was now placed into 140 external rotation with no traction. The leg was now dropped to the ground and adducted. Appropriate retractors were now positioned along the proximal femur. We also placed our femoral look into position. Additional capsular releasing was performed to gain access to the proximal femur. We now used a box osteotome. A canal finder was now utilized. Serial broaching was now performed with the assistance of Marco Antonio HAIRSTON tapping the broaches down with a mallet while held the broach in appropriate rotation and position. This was done until we reached the appropriate size with good overall rotational stability. Appropriate calcar planing was performed. A trial head/neck was placed into position. The hip was now reduced. The C- arm/fluoroscopy was brought back into the operative field. I obtained an AP pelvis demonstrating adequate leg length alignment. The trial components appeared adequately sized and position. The C-arm/fluoroscopy was pulled back. Retractors were repositioned and the hip was dislocated. The leg was again taken down to the ground and adducted. Appropriate retractors were repositioned as well as the femoral hook. All trial components were removed. The femoral implant was opened along with the femoral head. The femoral implant was introduced on the appropriate handle into our pre-broached area. I held the component position well Marco Antonio HAIRSTON used a mallet to seat the femoral component. The femoral component was now noted to be well seated and stable.. The femoral head was introduced with good positioning and fixation noted. Retractors were now removed. The hip was now reduced. There appeared be good positioning of the hip confirmed on intraoperative fluoroscopy. Spot films were obtained to document this. A second gram of TXA was given. Bipolar cautery had been utilized intermittently through the procedure for hemostasis. The wound was irrigated copiously with pulse lavage mechanical irrigation. The fascia was repaired with Vicryl suture. The subcutaneous soft tissues were repaired in layers with Vicryl suture. The skin was approximated with pernio/Dermabond. Sterile dressings were applied. Patient was then awakened, transferred to a bed and taken to recovery in stable condition. Marco Antonio HAIRSTON assisted with the complex procedure.
--- NOTE | 2024-01-12 15:26 | FL ---
EXAMINATION TYPE: FL guidance operating room, XR Hip Limited RT Intraoperative/procedural fluoroscopi c services were provided. Total fluoroscopy time is 12 seconds with a total of 2 submitted images to PACS. Please see the operative/procedural note for further details. DAP: 0.9581 Gycm2
[2024-01-12] MEDS: HYDROmorphone 0.5 MG/0.5 ML SYRINGE IVP PRN (16:50)
[2024-01-12] MEDS: ONDANSETRON 4 MG/2 ML VIAL IVP PRN (17:19)
[2024-01-12] MEDS: SENNOSIDES-DOCUSATE SODIUM 1 EACH TAB PO SCH (21:00)
[2024-01-12] MEDS: HYDROcodone/APAP 5-325MG 1 EACH TAB PO PRN (21:00)
[2024-01-12] MEDS: SODIUM CHLORIDE 0.9% 1,000 ML IV SCH (21:01)
[2024-01-13] MEDS: HYDROcodone/APAP 5-325MG 1 EACH TAB PO PRN (04:15)
[2024-01-13] MEDS ORDERED: IPRATROPIUM-ALBUTEROL 3 ML NEB INHALATION PRN (06:50)
[2024-01-13] MEDS ORDERED: ALBUTEROL NEBULIZED 2.5 MG/3 ML INHALATION PRN (06:50)
[2024-01-13 08:15] VITALS: BP 113/74; PULSE 74; RESP 16; TEMP 98.1
[2024-01-13] MEDS: MAGNESIUM OXIDE 400 MG TAB PO SCH (08:19)
[2024-01-13] MEDS: lisinopriL 5 MG TAB PO SCH (08:19)
[2024-01-13] MEDS: PANTOPRAZOLE 40 MG TABLET PO SCH (08:19)
[2024-01-13] MEDS: ENOXAPARIN 40 MG/0.4 ML SYRINGE SQ SCH (08:19)
[2024-01-13 08:27] LABS: Basophils # (A) 0.02 X 10*3/uL (0.00-0.10); Basophils % (A) 0.2 %; Eosinophils # (A) 0 X 10*3/uL (0.04-0.35); Eosinophils % (A) 0 %; HCT 34.6 % (37.2-46.3); HGB 11.8 g/dL (12.0-15.0); Lymphocytes # (A) 1.62 X 10*3/uL (0.90-5.00); Lymphocytes % (A) 13.4 %; MCH 33.1 pg (27.0-32.0); MCHC 34.1 g/dL (32.0-37.0); MCV 96.9 FL (80.0-97.0); Mean Platelet Volume 10.8 FL (9.5-12.2); Monocytes # (A) 0.98 X 10*3/uL (0.20-1.00); Monocytes % (A) 8.1 %; NRBC Per 100 WBC 0 X 10*3/uL (0.00-0.01); Neutrophils % (A) 77.8 %; Platelet Count 238 X 10*3/uL (140-440); RBC 3.57 X 10*6/uL (4.10-5.20); RDW 12.4 % (11.5-14.5); WBC 12.08 X 10*3/uL (4.50-10.00)
--- NOTE | 2024-01-13 10:27 | P.PN ---
Subjective Progress Note Date: 01/13/24 Principal diagnosis: Status post direct anterior right total hip arthroplasty Patient was evaluated at bedside today, she is resting in her hospital bed. Patient was already up and ambulating with physical therapy this morning, she did stairs. She has been tolerating the pain very well, she feels that the medications are working adequately. She has been urinating since surgery with no difficulty. She denies any headaches, lightheadedness, chest pain, shortness of breath, nausea or vomiting. Objective - Vital Signs Vital signs: Vital Signs Temp 98.1 F 01/13/24 07:27 Pulse 74 01/13/24 07:27 Resp 16 01/13/24 07:27 BP 113/74 01/13/24 07:27 Pulse Ox 95 01/13/24 07:27 FiO2 Intake & Output 01/12/24 01/13/24 01/13/24 18:59 06:59 18:59 Intake Total 1250 Output Total 45 Balance 1205 Weight 90.6 kg Intake: IV 1250 Output: Estimated Blood Loss 45 Other: Voiding Method Toilet # Voids 2 - Exam Right lower extremity: Incision is clean, dry, and intact. The foam dressing is in good condition. There is minimal soft tissue swelling and ecchymosis surrounding the medial and lateral aspects of the incision. Calf is soft, no tenderness with palpation. Plantar flexion, dorsiflexion, EHL, FHL are intact. Sensory exam to light touch throughout the extremity is intact, dorsal pedis pulses 2+. - Labs CBC & Chem 7: 01/13/24 04:54 Labs: Abnormal Lab Results - Last 24 Hours (Table) 01/13/24 Range/Units 04:54 WBC 12.08 H (4.50-10.00) X 10*3/uL RBC 3.57 L (4.10-5.20) X 10*6/uL Hgb 11.8 L (12.0-15.0) g/dL Hct 34.6 L (37.2-46.3) % MCH 33.1 H (27.0-32.0) pg Immature Gran # 0.06 H (0.00-0.04) X 10*3/uL Neutrophils # 9.40 H (1.80-7.70) X 10*3/uL Eosinophils # 0 L (0.04-0.35) X 10*3/uL Assessment and Plan Assessment: Postoperative day #1 status post direct anterior right total hip arthroplasty Plan: Pain control, plan for discharge home with [place] 7.5 mg / 325 mg DVT prophylaxis, aspirin 81 mg twice a day for 30 days Wound care instructions were discussed, this to include when to remove bandage, showering instructions and icing and elevating Weight-bear as tolerated with walker Home health care, this to include both therapy and nursing after discharge Medical recommendations appreciated Discharge planning: Patient stable for discharge home today Time with Patient: Less than 30
--- NOTE | 2024-01-13 10:30 | P.DS ---
Providers Date of admission: 01/12/2024 Expected date of discharge: 01/13/24 Attending physician: Singh Mak Consults: 01/12/24 14:22 Consult Physician Routine Consulting Provider: Edy Purcell Consult Reason/Comments: Medical management Do you want consulting provider notified?: Yes Primary care physician: Edy Purcell MD Hospital Course: Date of admission: 01/12/2024 Date of discharge: 01/13/2024 Admission diagnosis: Status post direct anterior right total hip arthroplasty Discharge diagnosis: Same Attending physician: Dr. Mak Surgical procedures: Direct anterior right total hip arthroplasty Brief history: Patient is a 73-year-old female with a history of progressive primary right hip osteoarthritis. At this point patient has failed conservative treatment measures and has opted to proceed with a elective direct anterior right total hip arthroplasty. Hospital course: Details of patient's surgery can be found in operative report. Patient tolerated the procedure well and was subsequently transported to orthopedic floor. Patient's orthopeidc and medical care was provided daily. Patient had daily laboratory tests performed for evaluation of overall blood counts. Patient had daily physical therapy to include strengthening range of motion as well as education with walker ambulation. Patient was treated with Lovenox for their postoperative DVT prophylaxis during their inpatient stay. Patient was noted to have a relatively uneventful postoperative course. Patient reported satisfactory pain control with oral pain medications by postoperative day 0. Patient showed satisfactory progress with physical therapy. Patient moved steadily through the program and had no difficulty meeting the goals by postoperative day 1. Given patient's otherwise satisfactory course and having met physical therapy goals, plan is to discharge patient home on postoperative day 1. Discharge condition/disposition: Patient will be discharged home in stable condition. Discharge medications: Instructions are given on resumption of patient's normal daily medications per primary care recommendation, in addition patient will be prescribed [place] 7.5 mg / 325 mg, aspirin 81 mg, senna S. Discharge instructions: 1. Wound care and infection precautions, keep incision dry and covered while showering, no lotions, creams, moisturizers. No soaking, tubs, pools, hottubs. Do not scrub over the incision. 2. Weight-bear as tolerated with walker / cane until follow-up. 3. Ice and elevate when necessary. Do not exceed 20 minutes per hour with ice pack. 4. Utilize compression sleeve until seen at first follow up appointment. 5. Visiting nursing care. 6. Home physical therapy. 7. Pain meds and anticoagulants per prescription. 8. Pain medication has potential to cause constipation. Increase oral fluid and fiber intake. Contact primary care provider if you have not had a bowel movement within 48 hours after discharge 9. No anti-inflammatory medication until discussed at first post operative visit, this including Motrin, Aleve, Mobic, Diclofenac,. 10. Follow up in office at 2 weeks postop with Marco Antonio Em PA-C/Dannie Ballesteros 11. Follow up with your primary care doctor 7-10 days after discharge. 12. Contact [facility] with any questions, . Procedures: Direct anterior right total hip arthroplasty Patient Condition at Discharge: Good Plan - Discharge Summary Discharge Rx Participant: Yes New Discharge Prescriptions: New Aspirin [Adult Low Dose Aspirin EC] 81 mg PO BID #60 tab HYDROcodone/APAP 7.5-325MG [[place] 7.5] 1 each PO Q6HR PRN #28 tab PRN Reason: Pain Sennosides/Docusate Sodium [Senna-S 8.6-50 mg Tablet] 2 each PO DAILY PRN #30 tablet PRN Reason: Constipation No Action DULoxetine HCL 20 mg PO HS Montelukast [Singulair] 10 mg PO HS lisinopriL [Zestril] 5 mg PO QAM Omeprazole 20 mg PO QAM Multivitamins, Thera [Multivitamin (formulary)] 1 tab PO DAILY Ergocalciferol [Vitamin D2 (1250 Mcg = 10109 Iu)] 1,250 mcg PO WEEKLY Vitamin B-12 (Unknown Dose) 1 tab PO DAILY Magnesium 200 mg PO DAILY Ipratropium/Albuter 20-100Mcg [Combivent Respimat 20-100Mcg Inhaler] 3 ml INHALATION TID PRN PRN Reason: Shortness Of Breath Albuterol Sulfate [Ventolin HFA] 2 puff INHALATION Q6H PRN PRN Reason: Shortness Of Breath Discharge Medication List Albuterol Sulfate [Ventolin HFA] 2 puff INHALATION Q6H PRN 04/02/23 [History] DULoxetine HCL 20 mg PO HS 04/02/23 [History] Ipratropium/Albuter 20-100Mcg [Combivent Respimat 20-100Mcg Inhaler] 3 ml INHALATION TID PRN 04/02/23 [History] Montelukast [Singulair] 10 mg PO HS 04/02/23 [History] Omeprazole 20 mg PO QAM 04/02/23 [History] lisinopriL [Zestril] 5 mg PO QAM 04/02/23 [History] Ergocalciferol [Vitamin D2 (1250 Mcg = 59636 Iu)] 1,250 mcg PO WEEKLY 01/06/24 [History] Multivitamins, Thera [Multivitamin (formulary)] 1 tab PO DAILY 01/06/24 [History] Vitamin B-12 (Unknown Dose) 1 tab PO DAILY 01/06/24 [History] Magnesium 200 mg PO DAILY 01/12/24 [History] Aspirin [Adult Low Dose Aspirin EC] 81 mg PO BID #60 tab 01/13/24 [Rx] HYDROcodone/APAP 7.5-325MG [[place] 7.5] 1 each PO Q6HR PRN #28 tab 01/13/24 [Rx] Sennosides/Docusate Sodium [Senna-S 8.6-50 mg Tablet] 2 each PO DAILY PRN #30 tablet 01/13/24 [Rx] Follow up Appointment(s)/Referral(s): Arturo Em PAC [PHYSICIAN SCRIPT GIRL] - 01/27/24 9:40 am (With Luiza) Activity/Diet/Wound Care/Special Instructions: Orthopedic Discharge Instructions: 1. Wound care and infection precautions, keep incision dry and covered while showering, no lotions, creams, moisturizers. No soaking, pools, hot tubs. Do not scrub over incision. 2. Weight-bear as tolerated with walker / cane until follow-up. 3. Ice and elevate when necessary. Do not exceed 20 minutes per hour with ice pack. 4. Utilize compression sleeve until seen at first follow up appointment. 5. Pain meds and anticoagulants per prescription. 6. Pain medication has potential to cause constipation. Increase oral fluid and fiber intake. Contact primary care provider if you have not had a bowel movement within 48 hours after discharge. 7. No anti-inflammatory medication until discussed at first post operative visit, this including Motrin, Aleve, Mobic, Diclofenac. 8. Follow up in office at 2 weeks postop with Marco Antonio Em PA-C/Dannie Lee PA-C 9. Follow up with your primary care doctor 7-10 days after discharge. 10. Contact [facility] with any questions, . Wound care instructions: 1. Okay to remove surgical dressing as of 01/19/2024 2. Okay to shower directly over the incision after removal of the dressing Discharge Disposition: HOME WITH HOME HEALTH SERVICES
--- NOTE | 2024-01-13 10:43 | P.CONS ---
History of Present Illness - Reason for Consult Consult date: 01/13/24 Medical management asthma, hypertension Requesting physician: Singh Mak - Chief Complaint Right hip osteoarthritis, status post direct anterior right total hip arthr - History of Present Illness This is a pleasant 73-year-old female status post direct anterior right total hip arthroplasty secondary to right hip osteoarthritis, in a patient with past medical history significant for asthma, hypertension and multiple other medical issues. Tolerated procedure well. Ambulated, completed stairs with PT, tolerated exertion well. Denies lightheadedness, dizziness or focal deficits. Reports minimal pain with stretching. Denies nausea vomiting or diarrhea. Posi tive flatus. Spontaneously voiding. Denies chest pain, palpitations or shortness of breath. Maintaining O2 sats in the 90s on room air. Incentive spirometer 2200. Hemoglobin postprocedure 11.8, preoperatively 13.7. WBC 12.8, afebrile. Review of Systems ROS Statement: Those systems with pertinent positive or pertinent negative responses have been documented in the HPI. ROS Other: All systems not noted in ROS Statement are negative. Past Medical History Past Medical History: Asthma, Hypertension, Osteoarthritis (OA) Additional Past Medical History / Comment(s): Varicose veins. History of Any Multi-Drug Resistant Organisms: None Reported Past Surgical History: Joint Replacement Additional Past Surgical History / Comment(s): Bilateral knee replacements. Past Anesthesia/Blood Transfusion Reactions: No Reported Reaction Past Psychological History: No Psychological Hx Reported Smoking Status: Never smoker Past Alcohol Use History: Occasional Past Drug Use History: None Reported - Past Family History Mother Family Medical History: No Reported History Brother(s) Family Medical History: Cancer Additional Family Medical History / Comment(s): 2 brothers had cancer. Medications and Allergies Home Medications Medication Instructions Recorded Confirmed Type Albuterol Sulfate [Ventolin HFA] 2 puff INHALATION Q6H PRN 04/02/23 01/12/24 History DULoxetine HCL 20 mg PO HS 04/02/23 01/12/24 History Ipratropium/Albuter 20-100Mcg 3 ml INHALATION TID PRN 04/02/23 01/12/24 History [Combivent Respimat 20-100Mcg Inhaler] Montelukast [Singulair] 10 mg PO HS 04/02/23 01/12/24 History Omeprazole 20 mg PO QAM 04/02/23 01/12/24 History lisinopriL [Zestril] 5 mg PO QAM 04/02/23 01/12/24 History Ergocalciferol [Vitamin D2 (1250 1,250 mcg PO WEEKLY 01/06/24 01/12/24 History Mcg = 37153 Iu)] Multivitamins, Thera [Multivitamin 1 tab PO DAILY 01/06/24 01/06/24 History (formulary)] Vitamin B-12 (Unknown Dose) 1 tab PO DAILY 01/06/24 01/06/24 History Magnesium 200 mg PO DAILY 01/12/24 01/12/24 History Aspirin [Adult Low Dose Aspirin EC] 81 mg PO BID #60 tab 01/13/24 Rx HYDROcodone/APAP 7.5-325MG [[place] 1 each PO Q6HR PRN #28 tab 01/13/24 Rx 7.5] Sennosides/Docusate Sodium 2 each PO DAILY PRN #30 tablet 01/13/24 Rx [Senna-S 8.6-50 mg Tablet] Allergies Allergy/AdvReac Type Severity Reaction Status Date / Time No Known Allergies Allergy Verified 01/12/24 11:05 Physical Exam Vitals: Vital Signs Temp Pulse Pulse Resp BP BP Pulse Ox 01/13/24 07:27 98.1 F 74 16 113/74 95 01/13/24 02:13 97.9 F 55 L 18 127/59 96 01/12/24 20:03 60 60 115/65 98 01/12/24 19:33 60 128/71 97 01/12/24 19:03 61 130/56 97 01/12/24 18:33 57 L 136/74 95 01/12/24 18:01 98.0 F 67 144/86 93 L 01/12/24 17:15 55 L 16 147/76 97 01/12/24 16:46 57 L 16 140/72 97 01/12/24 16:05 63 16 137/79 98 01/12/24 15:37 56 L 12 150/66 96 01/12/24 15:22 54 L 12 132/85 99 01/12/24 15:07 59 L 18 116/55 95 01/12/24 14:52 53 L 16 113/65 100 01/12/24 14:37 97.8 F 61 16 107/52 95 01/12/24 12:48 58 L 16 114/74 100 01/12/24 11:20 97.2 F L 64 16 128/58 96 Intake and Output 01/12/24 01/13/24 01/13/24 22:59 06:59 14:59 Other: Voiding Method Toilet # Voids 2 Weight 90.6 kg PHYSICAL EXAM: VITAL SIGNS: [As above] GENERAL: Pleasant 73y.o. female, sitting up in bed, alert and oriented x 3, no acute distress HEENT: Normal cephalic, conjunctivae normal. eyes normal.MMM. NECK: No JVD. No thyroid enlargement. No LNs CARDIOVASCULAR: S1, S2 regular..No murmur RESPIRATION: Unlabored, equal air entry, clear to auscultation .no accessory muscle use .incentive spirometer 2200. ABDOMEN: Soft, nondistended, nontender . No guarding. +BS. EXTREMITIES: Right lower extremity dressing clean dry and intact, minimal ecchymosis, edema. No calf tenderness. Positive DP pulse NERVOUS SYSTEM: Cranial N 2-12 grossly normal.No focal deficits. Skin: Warm and dry, no rash noted. Results CBC & Chem 7: 01/13/24 04:54 Labs: Abnormal Lab Results - Last 24 Hours (Table) 01/13/24 Range/Units 04:54 WBC 12.08 H (4.50-10.00) X 10*3/uL RBC 3.57 L (4.10-5.20) X 10*6/uL Hgb 11.8 L (12.0-15.0) g/dL Hct 34.6 L (37.2-46.3) % MCH 33.1 H (27.0-32.0) pg Immature Gran # 0.06 H (0.00-0.04) X 10*3/uL Neutrophils # 9.40 H (1.80-7.70) X 10*3/uL Eosinophils # 0 L (0.04-0.35) X 10*3/uL Assessment and Plan Assessment: Right hip osteoarthritis status post direct anterior right total hip arthroplasty Acute blood loss anemia postoperative, expected outcome Mild leukocytosis, postoperatively, reactive Chronic allergy induced asthma, stable Hypertension Obesity Plan: Continue on current medication regimen ,monitoring and symptomatic treatment. Medically cleared for DC, discharge planning in progress for today as per orthopedic surgery. At DC, maintain aggressive pulmonary toileting with incentive spirometer as previously advised; every hour x 10 while awake. Follow-up with PCP in 1 week. Thank you for the consult. The impression and plan of care has been dictated as directed. : I performed a history and examination of this patient, discussed the same with the dictator. I agree with the dictator's note ,documented as a scribe. Any additional findings or plans will be noted.
[2024-01-13] MEDS ORDERED: MULTIVITAMINS, THERA 1 EACH TAB PO SCH (12:00)
[2024-01-13] MEDS ORDERED: DULoxetine HCL 20 MG CAPSULE.DR PO SCH (21:00)
[2024-01-13] MEDS ORDERED: MONTELUKAST 10 MG TAB PO SCH (21:00)
[2024-01-14] MEDS ORDERED: ERGOCALCIFEROL 1,250 MCG (50,000 IU) CAPSULE PO SCH (09:00)
== END 2024-01-13 13:05 | disposition home health service (06) ==
LOC: OR 10:51 → 4SSUR 14:29 → OR 01-13 13:05
PROVIDERS: ATTEND Orthopaedic Surgery
DX: M16.11 Unilateral primary osteoarthritis, right hip (principal); G89.18 Other acute postprocedural pain; I10 Essential (primary) hypertension; K21.9 Gastro-esophageal reflux disease without esophagitis; J45.909 Unspecified asthma, uncomplicated; E66.9 Obesity, unspecified; D62 Acute posthemorrhagic anemia; Z79.82 Long term (current) use of aspirin; Z90.89 Acquired absence of other organs; Z90.49 Acquired absence of other specified parts of digestive tract; Z79.899 Other long term (current) drug therapy; Z79.1 Long term (current) use of non-steroidal anti-inflammatories (NSAID); Z68.32 Body mass index [BMI] 32.0-32.9, adult
CPT/HCPCS: 27130; 97161; 64447; 85025; 73501; C1776; J2250; J1100; J0690 ×2; J2405; J1650; J3010; J2795; J2704; J1170

== ENCOUNTER 2024-10-26 10:14 | Day surgery (SDC) | payer MEDICARE ==
[2024-10-26 10:29] VITALS: TEMP 97.3
[2024-10-26] MEDS ORDERED: LIDOCAINE 1% (10MG/ML) FOR IV START INTRADERMA PRN (10:30)
[2024-10-26] MEDS ORDERED: LACTATED RINGERS 1,000 ML IV SCH (10:30)
[2024-10-26] MEDS: LACTATED RINGERS 1,000 ML IV SCH (10:44)
[2024-10-26] MEDS ORDERED: PROPOFOL 10 MG/ML 20 ML VIAL IV ONE (11:02)
[2024-10-26 11:35] VITALS: BP 112/73; PULSE 60; RESP 14
--- NOTE | 2024-10-26 12:23 | P.PCN ---
Date of Procedure: 10/26/24 Procedure(s) Performed: PREOPERATIVE DIAGNOSIS: Colon cancer screening POSTOPERATIVE DIAGNOSIS: Diverticulosis PROCEDURE: Colonoscopy ANESTHESIA: MAC SURGEON: Khanh Storey M.D. SPECIMENS: None ENDOSCOPIC PROCEDURE: The patient was placed on the endoscopy table in the left decubitus position. The Olympus colonoscope was inserted into the anus and passed under direct visualization to the base of the cecum. The appendiceal orifice was visualized. From that point the scope was slowly withdrawn inspe cting all surfaces carefully. There were no neoplastic inflammatory or polypoid lesions throughout the cecum, ascending, transverse, descending, sigmoid and rectum. There was mild scattered diverticulosis noted throughout the colon. Digital rectal examination was normal. The patient was taken to the recovery room in stable condition per anesthesia guidelines. RECOMMENDATIONS: Resume diet. Consider repeat colonoscopy 10 years.
== END 2024-10-26 11:50 | disposition home or self-care (01) ==
LOC: ORWHC2ENDO 10:14
PROVIDERS: ATTEND Surgery
DX: Z12.11 Encounter for screening for malignant neoplasm of colon (principal); K57.30 Diverticulosis of large intestine without perforation or abscess without bleeding
CPT/HCPCS: J2704; G0121

== ENCOUNTER 2024-11-17 09:28 | Emergency (ER) | payer MEDICARE ==
[2024-11-17 09:35] VITALS: TEMP 97.4
--- NOTE | 2024-11-17 09:51 | ED ---
General Adult HPI - General Chief complaint: Abdominal Pain Stated complaint: R ABD Pain Time Seen by Provider: 11/17/24 09:38 Source: patient, RN notes reviewed Mode of arrival: ambulatory Limitations: no limitations - History of Present Illness Initial comments: Patient is a 73-year-old female present to the emergency department with right flank pain. Onset of symptoms was 130 this morning. Discomfort woke her from sleep. Discomfort has been persistent since that time. Patient has had some mild nausea and did vomit once. No constipation or diarrhea. No fever. No history of similar symptoms previously. Discomfort is somewhat severe. - Related Data Home Medications Medication Instructions Recorded Confirmed Albuterol Sulfate [Ventolin HFA] 2 puff INHALATION RT-QID PRN 04/02/23 11/17/24 DULoxetine HCL 20 mg PO DAILY 04/02/23 11/17/24 Ipratropium/Albuter 20-100Mcg 1 puff INHALATION RT-TID PRN 04/02/23 11/17/24 [Combivent Respimat 20-100Mcg Inhaler] Montelukast [Singulair] 10 mg PO HS 04/02/23 11/17/24 Omeprazole 20 mg PO DAILY 04/02/23 11/17/24 Ergocalciferol [Vitamin D2 (1250 1,250 mcg PO WEEKLY 01/06/24 11/17/24 Mcg = 42016 Iu)] Magnesium 200 mg PO DAILY 01/12/24 11/17/24 Alendronate Sodium [Fosamax] 70 mg PO WE 10/21/24 11/17/24 Losartan Potassium 50 mg PO DAILY 10/21/24 11/17/24 traZODone HCL [Desyrel] 50 mg PO HS 11/17/24 11/17/24 Previous Rx's Medication Instructions Recorded Ketorolac [Toradol] 10 mg PO Q6HR PRN #15 tab 11/17/24 Tamsulosin [Flomax] 0.4 mg PO DAILY #14 cap 11/17/24 Allergies Allergy/AdvReac Type Severity Reaction Status Date / Time No Known Allergies Allergy Verified 11/17/24 10:45 Review of Systems ROS Statement: Those systems with pertinent positive or pertinent negative responses have been documented in the HPI. ROS Other: All systems not noted in ROS Statement are negative. Constitutional: Denies: fever Eyes: Denies: eye pain ENT: Denies: ear pain Respiratory: Denies: cough, dyspnea Cardiovascular: Denies: chest pain Gastrointestinal: Reports: as per HPI, abdominal pain, nausea, vomiting Musculoskeletal: Reports: as per HPI Skin: Denies: rash Past Medical History Past Medical History: Asthma, GERD/Reflux, Hypertension, Osteoarthritis (OA) Additional Past Medical History / Comment(s): Varicose veins. osteoporosis, ulcer, seasonal allergies History of Any Multi-Drug Resistant Organisms: None Reported Past Surgical History: Joint Replacement Additional Past Surgical History / Comment(s): Bilateral knee replacements. colonoscopy . rt hip replaced. Past Anesthesia/Blood Transfusion Reactions: No Reported Reaction Past Psychological History: Depression Smoking Status: Never smoker Past Alcohol Use History: None Reported Past Drug Use History: None Reported - Past Family History Brother(s) Additional Family Medical History / Comment(s): 2 brothers had cancer. Daughter(s) Family Medical History: Deep Vein Thrombosis (DVT) General Exam Limitations: no limitations General appearance: alert, in no apparent distress Head exam: Present: normocephalic Eye exam: Present: normal appearance Neck exam: Present: normal inspection Respiratory exam: Present: normal lung sounds bilaterally Cardiovascular Exam: Present: regular rate, normal rhythm Expanded Peripheral pulses: 2+: Posterior Tibialis (R), Posterior Tibialis (L) GI/Abdominal exam: Present: soft, tenderness (Mild tenderness right flank), normal bowel sounds. Absent: distended, guarding, rebound, rigid, pulsatile mass Extremities exam: Present: normal inspection. Absent: pedal edema, calf tenderness Back exam: Present: CVA tenderness (R) Neurological exam: Present: alert Psychiatric exam: Present: normal affect, normal mood Skin exam: Present: normal color Course Vital Signs 11/17/24 09:30 Temperature 97.4 F L Pulse Rate 92 Respiratory 18 Rate Blood Pressure 147/68 O2 Sat by Pulse 97 Oximetry Medical Decision Making - Medical Decision Making Was pt. sent in by a medical professional or institution (Dr. PA, SPECTROGRAPHIC ANALYST, urgent care, hospital, or long-term...) When possible be specific @ -No Did you speak to anyone other than the patient for history (EMS, parent, family, police, friend...)? What history was obtained from this source @ -No Did you review nursing and triage notes (agree or disagree)? Why? @ -I reviewed and agree with nursing and triage notes Were old charts reviewed (outside hosp., previous admission, EMS record, old EKG, old radiological studies, urgent care reports/EKG's, long-term records)? Report findings @ -No old charts were reviewed Differential Diagnosis (chest pain, altered mental status, abdominal pain women, abdominal pain men, vaginal bleeding, weakness, fever, dyspnea, syncope, headache, dizziness, GI bleed, back pain, seizure, CVA, palpatations, mental health, musculoskeletal)? @ -Differential Abdominal Pain Women: Appendicitis, Cholecystitis, diverticulosis, ischemic bowel, pancreatitis, hepatitis, UTI, gastroenteritis, AAA, incarcerated hernia, bowel obstruction, constipation, inflammatory bowel, hepatitis, peptic ulcer disease, splenic infarction, perforated viscus, vulvitis, ovarian torsion, PID, kidney stone, placenta abruption, this is not meant to be an all-inclusive list EKG interpreted by me (3pts min.). @ -As above X-rays interpreted by me (1pt min.). @ -None done CT interpreted by me (1pt min.). @ -CT scan shows right UPJ stone almost 7 mm with hydro U/S interpreted by me (1pt. min.). @ -None done What testing was considered but not performed or refused? (CT, X-rays, U/S, lab s)? Why? @ -None What meds were considered but not given or refused? Why? @ -None Did you discuss the management of the patient with other professionals (professionals i.e. , PA, SPECTROGRAPHIC ANALYST, lab, RT, psych nurse, social media campaign manager, preventive medicine officer, teacher, control officer manager, egg caser)? Give summary @ -No Was smoking cessation discussed for >3mins.? @ -No Was critical care preformed (if so, how long)? @ -No Were there social determinants of health that impacted care today? How? (Homelessness, low income, unemployed, alcoholism, drug addiction, transportation, low edu. Level, literacy, decrease access to med. care, intermediate, rehab)? @ -No Was there de-escalation of care discussed even if they declined (Discuss DNR or withdrawal of care, Hospice)? DNR status @ -No What co-morbidities impacted this encounter? (DM, HTN, Smoking, COPD, CAD, Cancer, CVA, ARF, Chemo, Hep., AIDS, mental health diagnosis, sleep apnea, morbid obesity)? @ -None Was patient admitted / discharged? Hospital course, mention meds given and route, prescriptions, significant lab abnormalities, going to OR and other pertinent info. @ -Patient presents with sudden onset right flank pain, CT concerning for kidney stone. No fever or signs of infection in the urine. Patient reevaluated symptom-free. Patient will be discharged and recommended follow-up urology. Patient updated. Undiagnosed new problem with uncertain prognosis? @ -No Drug Therapy requiring intensive monitoring for toxicity (Heparin, Nitro, Insulin, Cardizem)? @ -No Were any procedures done? @ -No Diagnosis/symptom? @ -Ureterolithiasis Acute, or Chronic, or Acute on Chronic? @ -Acute Uncomplicated (without systemic symptoms) or Complicated (systemic symptoms)? @ -Default Side effects of treatment? @ -No Exacerbation, Progression, or Severe Exacerbation? @ -No Poses a threat to life or bodily function? How? (Chest pain, USA, VT, pneumonia, PE, COPD, DKA, ARF, appy, cholecystitis, CVA, Diverticulitis, Homicidal, Suicidal, threat to staff... and all critical care pts) @ -No - Lab Data Result diagrams: 11/17/24 10:02 11/17/24 10:02 Lab Results 11/17/24 11/17/24 11/17/24 Range/Units 10:02 10:02 10:02 WBC 11.37 H (4.50-10.00) 10*3/uL RBC 4.47 (4.10-5.20) 10*6/uL Hgb 15.1 H (12.0-15.0) g/dL Hct 43.3 (37.2-46.3) % MCV 96.9 (80.0-97.0) fL MCH 33.8 H (27.0-32.0) pg MCHC 34.9 (32.0-37.0) g/dL Plt Count 296 (140-440) 10*3/uL MPV 10.0 (9.5-12.2) fL Immature Gran % (Auto) 0.4 % Neutrophils % 72.6 % Lymphocytes % 17.7 % Monocytes % 8.5 % Eosinophils % 0.4 % Basophils % 0.4 % Immature Gran # 0.04 (0.00-0.04) 10*3/uL Neutrophils # 8.26 H (1.80-7.70) 10*3/uL Lymphocytes # 2.01 (0.90-5.00) 10*3/uL Monocytes # 0.97 (0.20-1.00) 10*3/uL Eosinophils # 0.04 (0.04-0.35) 10*3/uL Basophils # 0.05 (0.00-0.10) 10*3/uL PT 10.5 (10.0-12.5) sec INR 0.9 (<1.2) APTT 22.4 (22.0-30.0) sec Sodium (137-145) mmol/L Potassium (3.5-5.1) mmol/L Chloride (98-107) mmol/L Carbon Dioxide (22-30) mmol/L Anion Gap mmol/L BUN (7-17) mg/dL Creatinine (0.52-1.04) mg/dL Est GFR (CKD-EPI)AfAm (>60 ml/min/1.73 sqM) Est GFR (CKD-EPI)NonAf (>60 ml/min/1.73 sqM) Glucose (74-99) mg/dL Calcium (8.4-10.2) mg/dL Total Bilirubin (0.2-1.3) mg/dL AST (14-36) U/L ALT (4-34) U/L Alkaline Phosphatase (38-126) U/L Total Protein (6.3-8.2) g/dL Albumin (3.5-5.0) g/dL Amylase (30-110) U/L Lipase (23-300) U/L Urine Color Light Yellow Urine Appearance Clear (Clear) Urine pH 8.0 (5.0-8.0) Ur Specific Douds 1.018 (1.001-1.035) Urine Protein Negative (Negative) Urine Glucose (UA) Negative (Negative) Urine Ketones Negative (Negative) Urine Blood Moderate H (Negative) Urine Nitrite Negative (Negative) Urine Bilirubin Negative (Negative) Urine Urobilinogen <2.0 (<2.0) mg/dL Ur Leukocyte Esterase Moderate H (Negative) Urine RBC 51 H (0-5) /hpf Urine WBC 6 H (0-5) /hpf Ur Squamous Epith Cells <1 (0-4) /hpf Urine Bacteria Rare H (None) /hpf 11/17/24 Range/Units 10:02 WBC (4.50-10.00) 10*3/uL RBC (4.10-5.20) 10*6/uL Hgb (12.0-15.0) g/dL Hct (37.2-46.3) % MCV (80.0-97.0) fL MCH (27.0-32.0) pg MCHC (32.0-37.0) g/dL Plt Count (140-440) 10*3/uL MPV (9.5-12.2) fL Immature Gran % (Auto) % Neutrophils % % Lymphocytes % % Monocytes % % Eosinophils % % Basophils % % Immature Gran # (0.00-0.04) 10*3/uL Neutrophils # (1.80-7.70) 10*3/uL Lymphocytes # (0.90-5.00) 10*3/uL Monocytes # (0.20-1.00) 10*3/uL Eosinophils # (0.04-0.35) 10*3/uL Basophils # (0.00-0.10) 10*3/uL PT (10.0-12.5) sec INR (<1.2) APTT (22.0-30.0) sec Sodium 138 (137-145) mmol/L Potassium 4.4 (3.5-5.1) mmol/L Chloride 101 (98-107) mmol/L Carbon Dioxide 26 (22-30) mmol/L Anion Gap 11 mmol/L BUN 27 H (7-17) mg/dL Creatinine 1.17 H (0.52-1.04) mg/dL Est GFR (CKD-EPI)AfAm 53 (>60 ml/min/1.73 sqM) Est GFR (CKD-EPI)NonAf 46 (>60 ml/min/1.73 sqM) Glucose 122 H (74-99) mg/dL Calcium 10.4 H (8.4-10.2) mg/dL Total Bilirubin 1.6 H (0.2-1.3) mg/dL AST 27 (14-36) U/L ALT 15 (4-34) U/L Alkaline Phosphatase 75 (38-126) U/L Total Protein 7.4 (6.3-8.2) g/dL Albumin 4.4 (3.5-5.0) g/dL Amylase 49 (30-110) U/L Lipase 32 (23-300) U/L Urine Color Urine Appearance (Clear) Urine pH (5.0-8.0) Ur Specific Douds (1.001-1.035) Urine Protein (Negative) Urine Glucose (UA) (Negative) Urine Ketones (Negative) Urine Blood (Negative) Urine Nitrite (Negative) Urine Bilirubin (Negative) Urine Urobilinogen (<2.0) mg/dL Ur Leukocyte Esterase (Negative) Urine RBC (0-5) /hpf Urine WBC (0-5) /hpf Ur Squamous Epith Cells (0-4) /hpf Urine Bacteria (None) /hpf Disposition Clinical Impression: Ureterolithiasis Disposition: HOME SELF-CARE Condition: Stable Instructions (If sedation given, give patient instructions): Kidney Stones (ED) Additional Instructions: Prescription sent to pharmacy. Please do follow-up with urology in the next couple of days for recheck. This is important to see urology as you do have a large stone that is up high. Return for fever, increased pain, vomiting, worsening or changing symptoms or any other concerns. Prescriptions: Tamsulosin [Flomax] 0.4 mg PO DAILY #14 cap Ketorolac [Toradol] 10 mg PO Q6HR PRN #15 tab PRN Reason: Pain Is patient prescribed a controlled substance at d/c from ED?: No Referrals: Edy Purcell MD [Primary Care Provider] - 1-2 days Juan Carlos Villa MD [STAFF PHYSICIAN] - 1-2 days Time of Disposition: 10:59
[2024-11-17] MEDS: KETOROLAC 15 MG/ML 1 ML VIAL IVP STA (09:54)
[2024-11-17] MEDS: METOCLOPRAMIDE 5 MG/ML 2 ML VIAL IVP STA (09:57)
[2024-11-17] MEDS: SODIUM CHLORIDE 0.9% 1,000 ML IV SCH (10:05)
[2024-11-17 10:18] LABS: Basophils # (A) 0.05 10*3/uL (0.00-0.10); Basophils % (A) 0.4 %; Eosinophils # (A) 0.04 10*3/uL (0.04-0.35); Eosinophils % (A) 0.4 %; HCT 43.3 % (37.2-46.3); HGB 15.1 g/dL (12.0-15.0); Lymphocytes # (A) 2.01 10*3/uL (0.90-5.00); Lymphocytes % (A) 17.7 %; MCH 33.8 pg (27.0-32.0); MCHC 34.9 g/dL (32.0-37.0); MCV 96.9 fL (80.0-97.0); Monocytes # (A) 0.97 10*3/uL (0.20-1.00); Monocytes % (A) 8.5 %; Neutrophils # (A) 8.26 10*3/uL (1.80-7.70); Neutrophils % (A) 72.6 %; Platelet Count 296 10*3/uL (140-440); RBC 4.47 10*6/uL (4.10-5.20); RDW 12.5 % (11.5-14.5); WBC 11.37 10*3/uL (4.50-10.00)
[2024-11-17 10:27] LABS: INR 0.9 (<1.2); Partial Thromboplastin Time 22.4 sec (22.0-30.0); Prothrombin Time 10.5 sec (10.0-12.5)
[2024-11-17 10:34] LABS: Appearance,Urine Clear (Clear); Bacteria,Urine Rare /hpf; Bilirubin,Urine Negative (Negative); Blood,Urine Moderate (Negative); Color,Urine Light Yellow; Glucose,Urine (UA) Negative (Negative); Ketones,Urine Negative (Negative); Leukocyte Esterase,Urine Moderate (Negative); Nitrite,Urine Negative (Negative); Protein,Urine Negative (Negative); RBC,Urine 51 /hpf (0-5); Specific Gravity,Urine 1.018 (1.001-1.035); Squamous Epithelial Cell,Urine <1 /hpf (0-4); Urobilinogen,Urine <2.0 mg/dL (<2.0); WBC,Urine 6 /hpf (0-5)
[2024-11-17 10:35] LABS: African American GFR (CKD) 53 (>60 ml/min/1.73 sqM); Albumin 4.4 g/dL (3.5-5.0); Amylase 49 U/L (30-110); Anion Gap 11 mmol/L; Blood Urea Nitrogen 27 mg/dL (7-17); Calcium 10.4 mg/dL (8.4-10.2); Carbon Dioxide 26 mmol/L (22-30); Chloride 101 mmol/L (98-107); Glucose 122 mg/dL (74-99); Non-African American GFR(CKD) 46 (>60 ml/min/1.73 sqM); Potassium 4.4 mmol/L (3.5-5.1); Sodium 138 mmol/L (137-145); Total Protein 7.4 g/dL (6.3-8.2)
--- NOTE | 2024-11-17 10:35 | CT ---
EXAMINATION TYPE: CT abdomen pelvis wo con DATE OF EXAM: 11/17/2024 10:23 AM COMPARISON: None. CLINICAL INDICATION: Female, 73 years old with history of abdominal pain, abdominal pain, nausea and vomiting TECHNIQUE: Axial images with sagittal coronal reformats. Examination of the solid and hollow viscera is limited given the lack of contrast. CT DLP: 884 mGycm, Automated exposure control for dose reduction was used. FINDINGS: LUNG BASES: No evidence for nodule. No evidence for infiltrate. LIVER/GB: The gallbladder is surgically absent. No space-occupying hepatic lesion. PANCREAS: No pancreatic mass identified. No inflammatory process seen. SPLEEN: No evidence for splenomegaly. No intrasplenic lesions seen. ADRENALS: No adrenal nodules identified. No evidence for thickening. KIDNEYS: 6.9 x 6.5 mm right UPJ calculus resulting in mild hydronephrosis and perinephric stranding. No additional calculi seen within either kidney or ureter. Multiple hypoattenuating masses seen bilat erally likely reflecting renal cysts measuring up to 6.3 cm on the left and up to 6.3 cm on the right . BOWEL: Appendix has a normal appearance. No evidence of bowel obstruction. No inflammatory process. S cattered sigmoid diverticulosis without diverticulitis. Lymph nodes: No evidence for adenopathy greater than 1 cm. Abdominal aorta: Atheromatous changes seen. No evidence for aneurysm. Genital organs: No significant abnormality. Other: Right hip prosthesis with streak limiting artifact. IMPRESSION: 1. 6.9 x 6.5 mm right UPJ calculus resulting in mild hydronephrosis and perinephric stranding. [facility], , 11/17/2024 10:33 AM
[2024-11-17 10:36] LABS: ALT 15 U/L (4-34); AST 27 U/L (14-36); Alkaline Phosphatase 75 U/L (38-126); Lipase 32 U/L (23-300); Total Bilirubin 1.6 mg/dL (0.2-1.3)
[2024-11-17 11:14] VITALS: BP 133/84; PULSE 57; RESP 16
== END 2024-11-17 11:18 | disposition home or self-care (01) ==
LOC: EC 09:28
DX: N13.2 Hydronephrosis with renal and ureteral calculous obstruction (principal)
CPT/HCPCS: 36415; 80053; 82150; 83690; 85025; 85610; 85730; 81001; 74176; 99284; 96374; 96375; 96361; J2765; J1885

== ENCOUNTER → 2024-11-30 | Outpatient (CLI) | payer MEDICARE ==
--- NOTE | 2024-11-30 11:02 | XR ---
EXAMINATION TYPE: XR KUB DATE OF EXAM: 11/30/2024 10:20 AM COMPARISON: None CLINICAL INDICATION: Female, 73 years old with history of N20.1 CALCULUS OF URETER; [facility] TECHNIQUE: One radiographic view of the abdomen was obtained. FINDINGS: The bowel gas pattern is nonspecific without dilated loops of small or large bowel. . Fecal material and gas are demonstrated throughout the colon and rectum. There is no evidence for organome david or pneumoperitoneum. No acute osseous process. No abnormal calcifications are present. Right h ip arthroplasty appears intact. Right renal pelvis calcification measuring 6 mm. IMPRESSION: 1. Right renal pelvis calcification measuring 6 cm. 2. Nonspecific bowel gas pattern without radiographic evidence for acute process. [facility], , 11/30/2024 10:59 AM
== END | disposition home or self-care (01) ==
LOC: RADXRMAIN 10:11
PROVIDERS: ATTEND Urology
DX: N20.1 Calculus of ureter (principal); N28.89 Other specified disorders of kidney and ureter
CPT/HCPCS: 74018

== ENCOUNTER → 2024-12-10 | Outpatient (CLI) | payer MEDICARE ==
--- NOTE | 2024-12-10 13:12 | MM ---
Reason for Exam: Screening (asymptomatic). Last screening mammogram was performed 12 month(s) ago. Patient History: Menarche at age 13. First Full-Term at age 17. Postmenopausal. Paternal grandmother had breast cancer at or over age 50. Risk Values: Felicity 5 year model risk: 1.2%. NCI Lifetime model risk: 2.5%. Prior Study Comparison: 06/30/2017 Bilateral Screening Mammogram, [facility]. 11/13/2021 Bilateral Screening Mammogram, [facility]. 11/29/2022 Bilateral MG 3D screening mammo w/cad, [facility]. 12/08/2023 Bilateral MG 3D screening mammo w/cad, [facility]. Tissue Density: The breasts are almost entirely fatty. Findings: Analyzed By CAD. Right breast: Stable benign right upper outer quadrant lymph nodes. There is no suspicious group of microcalcifications or new suspicious mass. Left breast: There is no suspicious group of microcalcifications or new suspicious mass. Overall Assessment: Benign, BI-RAD 2 Management: Screening Mammogram of both breasts in [address] [facility] will attempt to contact patient to return for supplemental views and ultrasound if indicated. Patient should continue monthly self-breast exams. A clinical breast exam by your physician is recommended on an annual basis. This exam should not preclude additional follow-up of suspicious palpable abnormalities. Note on Felicity scores and lifetime risk: 1. A Felicity score greater than 3% is considered moderate risk. If this is the case, consider specialist referral to assess eligibility for a risk reducing agent. 2. If overall lifetime risk for the development of breast cancer is 20% or higher, the patient may qualify for future screening with alternating mammogram and breast MRI. [facility], , 12/10/2024 1:01 PM. Electronically signed and approved by: Neftaly Yadav DO
== END | disposition home or self-care (01) ==
LOC: RADMAMWWP 12:39
PROVIDERS: ATTEND Family Medicine
DX: Z12.31 Encounter for screening mammogram for malignant neoplasm of breast (principal); R92.313 Mammographic fatty tissue density, bilateral breasts; Z78.0 Asymptomatic menopausal state; Z80.3 Family history of malignant neoplasm of breast
CPT/HCPCS: 77063; 77067

== ENCOUNTER 2024-12-29 07:13 | Day surgery (SDC) | payer MEDICARE ==
--- NOTE | 2024-12-28 19:43 | P.GSHP ---
History of Present Illness H&P Date: 12/28/24 74 yo female with a 5-6 mm right upj stone that failed eswl. She comes for right ureteroscopy with laser lithotripsy to relieve her of the obstruction and pain from the stone. - Constitutional Constitutional: Denies chills, Denies fever - EENT Eyes: denies blurred vision, denies pain Ears, nose, mouth and throat: Denies headache, Denies sore throat - Cardiovascular Cardiovascular: Denies chest pain, Denies shortness of breath - Respiratory Respiratory: Denies cough, Denies 7 - Gastrointestinal Gastrointestinal: Denies abdominal pain, Denies diarrhea, Denies nausea, Denies vomiting - Genitourinary (Female) Genitourinary: Denies dysuria, Denies hematuria - Genitourinary (Male) Genitourinary: Denies dysuria, Denies hematuria - Musculoskeletal Musculoskeletal: Denies myalgias - Integumentary Integumentary: Denies pruritus, Denies rash - Neurological Neurological: Denies numbness, Denies weakness - Psychiatric Psychiatric: Denies anxiety, Denies depression - Endocrine Endocrine: Denies fatigue, Denies weight change Past Medical History Past Medical History: Asthma, GERD/Reflux, Hypertension, Osteoarthritis (OA) Additional Past Medical History / Comment(s): Varicose veins. osteoporosis, ulcer, seasonal allergies, kidney stone History of Any Multi-Drug Resistant Organisms: None Reported Past Surgical History: Appendectomy, Cholecystectomy, Joint Replacement, Tonsillectomy Additional Past Surgical History / Comment(s): Bilateral knee replacements. co lonoscopy. rt hip replaced. Past Anesthesia/Blood Transfusion Reactions: No Reported Reaction Smoking Status: Never smoker - Past Family History Brother(s) Family Medical History: Cancer Additional Family Medical History / Comment(s): 2 brothers had cancer. Daughter(s) Family Medical History: Deep Vein Thrombosis (DVT) Medications and Allergies Home Medications Medication Instructions Recorded Confirmed Type Albuterol Sulfate [Ventolin HFA] 2 puff INHALATION RT-QID PRN 04/02/23 12/28/24 History DULoxetine HCL 20 mg PO DAILY 04/02/23 12/28/24 History Ipratropium/Albuter 20-100Mcg 1 puff INHALATION DIRECTED PRN 04/02/23 12/28/24 History [Combivent Respimat 20-100Mcg Inhaler] Montelukast [Singulair] 10 mg PO HS 04/02/23 12/28/24 History Omeprazole 20 mg PO DAILY 04/02/23 12/28/24 History Ergocalciferol [Vitamin D2 (1250 1,250 mcg PO WEEKLY 01/06/24 12/28/24 History Mcg = 60983 Iu)] Magnesium 200 mg PO DAILY 01/12/24 12/28/24 History Alendronate Sodium [Fosamax] 70 mg PO WE 10/21/24 12/28/24 History Losartan Potassium 50 mg PO DAILY 10/21/24 12/28/24 History Ketorolac [Toradol] 10 mg PO Q6HR PRN #15 tab 11/17/24 12/28/24 Rx Tamsulosin [Flomax] 0.4 mg PO DAILY #14 cap 11/17/24 12/28/24 Rx traZODone HCL [Desyrel] 50 mg PO HS 11/17/24 12/28/24 History Allergies Allergy/AdvReac Type Severity Reaction Status Date / Time No Known Allergies Allergy Verified 12/28/24 08:18 Surgical - Exam - General well developed, well nourished, no distress - Eyes normal ocular movement, no icteric - ENT no hearing loss, no congestion - Neck no masses, trachea midline - Respiratory normal respiratory effort, clear to auscultation - Abdomen Abdomen: soft, non tender, no guarding, no rigid, no rebound - Integumentary no rash, no abnormal pigmentation - Neurologic no disoriented, no combative - Psychiatric oriented to time, oriented to person, oriented to place, speech is normal, memory intact Results - Imaging Abdominal x-ray: report reviewed, image reviewed CT scan - abdomen: report reviewed, image reviewed CT scan - pelvis: report reviewed, image reviewed Assessment and Plan Assessment: impression: right ureteral stone woth obstruction Plan: cysto with right ureteroscopy with laser lithotripsy and possible stent placement.
[~2024-12-29 07:13] MED LIST changes: +AMPICILLIN 1,000 MG in SODIUM CHLORIDE 0.9% 50 ML IVPB PRN; +MIDAZOLAM 2 MG/2 ML VIAL IV PRN; -ONDANSETRON 4 MG/2 ML VIAL IVP PRN; -TRANEXAMIC 1,000 MG/100ML-NACL 1,000 MG in SALINE 1 100ML.BAG IVPB PRN; +fentaNYL (PF) 50 MCG/ML 2 ML AMP IVP PRN
[2024-12-29] MEDS: LACTATED RINGERS 1,000 ML IV SCH (07:54)
[2024-12-29] MEDS: IV FLUID CONTINUATION 1,000 ML IV ONE (07:55)
[2024-12-29] MEDS: ONDANSETRON 4 MG/2 ML VIAL IVP ONE (07:55)
[2024-12-29] MEDS: DEXAMETHASONE SOD PHOSPHATE 4 MG/ML 1 ML VIAL IV ONE (07:56)
--- NOTE | 2024-12-29 08:24 | XR ---
EXAMINATION TYPE: XR KUB DATE OF EXAM: 12/29/2024 7:30 AM COMPARISON: None. CLINICAL INDICATION: Female, 74 years old with history of Kidney stone, TECHNIQUE: XR KUB view(s) obtained. FINDINGS: There is a normal bowel gas pattern. Psoas margins are normal. No organomegaly is present. There is a 0.5 cm calcification overlying the mid right kidney. Right hip prosthesis present. IMPRESSION: 1. 0.5 cm right renal calculus [facility], , 12/29/2024 8:22 AM
[2024-12-29] MEDS ORDERED: MIDAZOLAM 2 MG/2 ML VIAL ONE (08:37)
[2024-12-29] MEDS ORDERED: LIDOCAINE 1% INJ 10MG/ML (20 ML MDV) ONE (08:37)
[2024-12-29] MEDS ORDERED: PROPOFOL 10 MG/ML 20 ML VIAL IV ONE (08:37)
[2024-12-29] MEDS ORDERED: fentaNYL (PF) 50 MCG/ML 2 ML AMP ONE (08:37)
--- NOTE | 2024-12-29 09:37 | P.OP ---
Date of Procedure: 12/29/24 Preoperative Diagnosis: Right UPJ stone Postoperative Diagnosis: Same Procedure(s) Performed: Cystoscopy, right ureteroscopy with laser lithotripsy, stone basketing Anesthesia: GERMÁN Surgeon: Juan Carlos Villa Estimated Blood Loss (ml): 0 Pathology: other (Stone) Indications for Procedure: Patient is 74. She has a 7 to 8 mm UPJ stone on the right she failed shockwave lithotripsy. She comes for a right ureteroscopy and laser lithotripsy Description of Procedure: Brought to the operating suite. Given general anesthesia. Placed lithotomy position with sterile prep and drape. Cystoscopy Foroblique lens and 25 [place] sheath identifies a normal urethra. The bladder mucosa is unremarkable. The right ureteral orifice is identified and intubated with an 035 wire passed up into the kidney. Over the wire is passed an 11-13 [place] reentry sheath. The inner sheath is removed. I passed the flexible ureteroscope up into the renal pelvis where the stone was identified. It falls back into the middle pole calyx. With a 275 m probe the stone was lasered into tiny fragments the largest of which are basketed. At the end of the procedure there are no notable fragments after I look throughout the complete collecting system. Pullout ureteroscopy does not identify any significant edema or stones. The bladder is drained the patient is awakened and returned to recovery in good condition. She tolerated the procedure well be discharged home upon recovery.
[2024-12-29 09:40] VITALS: TEMP 96.8
--- NOTE | 2024-12-29 10:07 | FL ---
Fluoroscopy INDICATION: Pain FINDINGS: Fluoroscopy time: 25 seconds. Total dose area product (DAP) in uGy*m?, mGy*cm? (or similar): 0.60030 Images obtained: 4. Images document the procedure. IMPRESSION: 1. Documentation of fluoroscopy. [facility], , 12/29/2024 10:04 AM
[2024-12-29] MEDS: HYDROmorphone 0.5 MG/0.5 ML SYRINGE IVP PRN (10:29)
[2024-12-29] MEDS: KETOROLAC 15 MG/ML 1 ML VIAL IVP STA (10:33)
[2024-12-29 11:03] VITALS: RESP 16
[2024-12-29 11:45] VITALS: BP 133/60; PULSE 78
== END 2024-12-29 12:04 | disposition home or self-care (01) ==
LOC: OR 07:13
PROVIDERS: ATTEND Urology
DX: N20.1 Calculus of ureter (principal); I10 Essential (primary) hypertension; J45.909 Unspecified asthma, uncomplicated; M19.90 Unspecified osteoarthritis, unspecified site; M81.0 Age-related osteoporosis without current pathological fracture; K21.9 Gastro-esophageal reflux disease without esophagitis; F32.A Depression, unspecified; Z79.83 Long term (current) use of bisphosphonates; Z79.899 Other long term (current) drug therapy; Z87.442 Personal history of urinary calculi
CPT/HCPCS: 52353; 82365; 74018; J1100; J2405; J1580; J1885; J1171